=== PATIENT | male | born 1940 | race Caucasian/White ===

== ENCOUNTER → 2019-04-09 17:44 | Outpatient (CLI) | payer MEDICARE, OTHER, SELFPAY ==
--- NOTE | ~2019-04-09 | XR_ITS ---
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 TECHNIQUE: Posteroanterior, ulnar deviation, oblique, and lateral views of the right wrist were obtai carolyn. COMPARISON: none FINDINGS: Again seen is widening of the scapholunate interval with advanced osteoarthritis at the radial scapho id articulation consistent with scapholunate advanced collapse (SLAC) wrist. Moderate osteoarthritis at the lunocapitate articulation at the midcarpal joint. Mild osteoarthritis at the remainder of the wrist and metacarpal joints, the triscaphe joint and first carpal metacarpal joints. 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 No fracture. Atherosclerotic calcification s along the ulnar artery. IMPRESSION: 1. 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 2. Additional less severe polyarticular osteoarthritis at the wrist and carpus with progression of no w moderate osteoarthritis at the lunocapitate articulation. Reviewed, dictated and finalized at location A. C COMPOSITION TEACHER IMPRESSION: 1. Scapholunate advanced collapse (SLAC) wrist with chronic severe osteoarthrit is at the radial scaphoid articulation. 2. Additional less severe polyarticular osteoarthritis at the wrist and carpus with progression of now moderate osteoarthritis at the lunocapitate articnavio nandini
== END ==
PROVIDERS: PCP Family Medicine; Visit Provider Plastic Surgery
DX: M19.031 Primary osteoarthritis, right wrist (principal)
CPT/HCPCS: 73110

== ENCOUNTER 2020-01-28 10:59 | Outpatient (CLI) | payer MEDICARE, OTHER, SELFPAY ==
--- NOTE | 2020-01-28 11:23 | ECG_ITS ---
Measurements Intervals [place] Rate: 60 P: 238 NM: 213 QRS: -53 QRSD: 168 T: 90 QT: 495 QTc: 495 Interpretive Statements ELECTRONIC ATRIAL PACEMAKER ELECTRONIC VENTRICULAR PACEMAKER BASELINE ARTIFACT- V3 NO FURTHER INTERPRETATION IS POSSIBLE ATYPICAL ECG Electronically Signed On 01-28-2020 13:24:32 PRODUCTION CONTROL PEGBOARD CLERK by Yinka Lawler D.O.
== END 2020-01-28 11:00 | disposition home or self-care (01) ==
PROVIDERS: PCP Family Medicine; Visit Provider Nurse Practitioner Family
DX: I12.9 Hypertensive chronic kidney disease with stage 1 through stage 4 chronic kidney disease, or unspecified chronic kidney disease (principal); N18.30 Chronic kidney disease, stage 3 unspecified; R42 Dizziness and giddiness; R94.31 Abnormal electrocardiogram [ECG] [EKG]
CPT/HCPCS: 93005

== ENCOUNTER 2020-04-07 14:54 | Outpatient (CLI) | payer MEDICARE, SELFPAY ==
[2020-04-07 16:19] LABS: Basophils Percent Auto 0.3 % (0.2-1.2); Eosinophils Absolute Auto 0.2 K/mm3 (0-0.3); Eosinophils Percent Auto 3.3 % (0-4.4); Hematocrit 45.4 % (42.0-52.0); Hemoglobin 15.1 g/dL (14.0-18.0); Immature Granulocyte Absolute 0.01 K/mm3 (0.00-0.031); Immature Granulocyte Percent A 0.1 % (0-0.5); Lymphocytes Absolute Auto 1.65 K/mm3 (0.9-3.2); Lymphocytes Percent Auto 22.6 % (18.3-44.2); Mean Corpuscular HGB Conc 33.3 g/dl (32-36); Mean Corpuscular Hemoglobin 30.9 pg (26-34); Monocytes Absolute Auto 0.5 K/mm3 (0.1-0.6); Monocytes Percent Auto 6.9 % (2.6-8.5); Neutrophils Absolute Auto 4.9 K/mm3 (1.3-6.7); Neutrophils Percent Auto 66.8 % (45.5-73.1); Platelet Count Result 207 k/mm3 (150-375); Red Blood Count 4.88 M/mm3 (4.6-6.20); Red Cell Distribution Width 13.1 % (11.5-14.5); White Blood Count 7.3 K/mm3 (4.5-10.0)
== END 2020-04-07 14:55 | disposition home or self-care (01) ==
LOC: ANHLAB 14:58
PROVIDERS: PCP Family Medicine
DX: G20 Parkinson's disease (principal); G62.9 Polyneuropathy, unspecified
CPT/HCPCS: 36415; 82607; 85025; 86038

== ENCOUNTER 2020-04-09 09:50 | Outpatient (CLI) | payer MEDICARE, SELFPAY ==
[2020-04-09 10:32] LABS: Alanine Aminotransferase 6 U/L (4-50); Albumin Level 3.8 g/dL (3.5-5.1); Alkaline Phosphatase 65 U/L (38-126); Anion Gap 4 mmol/L (8-16); Aspartate Amino Transferase 23 U/L (17-59); Bilirubin,Total 0.4 mg/dL (0.2-1.3); Blood Urea Nitrogen 32 mg/dL (9-20); Calcium 9.1 mg/dL (8.4-10.2); Carbon Dioxide 31 mmol/L (22-30); Chloride 104 mmol/L (98-107); Estimated Glomerular Filt Rate 49; Glucose 139 mg/dL (75-110); Potassium 4.4 mmol/L (3.4-5.0); Sodium 139 mmol/L (137-145)
[2020-04-09 10:40] LABS: Erythrocyte Sedimentation Rate 11 mm/hr (0-20)
[2020-04-11 16:47] LABS: Methylmalonic Acid 182 nmol/L (87-318)
[2020-04-11 22:57] LABS: Albumin 24 Hr Urine 45 %; Creatinine, 24 Hr Urine 1.24 g/24 h (0.50-2.15); Total Protein/Creatinine Ratio 294 mg/g creat (<115)
[2020-04-16 09:54] LABS: Measured Kappa Chains 3.02; Measured Lambda Chains 0.75; Total Kappa Chains 42.28
[2020-04-16 09:55] LABS: Albumin 45; Creat 24 Hr 1.25; Pro/Creat Ratio 280
== END 2020-04-09 09:51 | disposition home or self-care (01) ==
PROVIDERS: PCP Family Medicine
DX: G20 Parkinson's disease (principal); G62.9 Polyneuropathy, unspecified
CPT/HCPCS: 36415; 80053; 81050; 82570; 83883; 83921; 84156; 84166; 85652; 86335

== ENCOUNTER 2020-07-18 13:51 | Outpatient (CLI) | payer MEDICARE, SELFPAY ==
--- NOTE | ~2020-07-18 | US_ITS ---
EXAMINATION: US art doppler w press LE BI DATE: 07/18/2020 14:42 INDICATION: Peripheral vascular disease. TECHNIQUE: Segmental pressures and plethysmographic and Doppler waveforms of the brachial and lower e xtremity arteries were obtained. COMPARISON: None. FINDINGS: Right and left brachial artery pressures of 163 mm Hg and 168 mm Hg, respectively, are concordant (no rmal difference <= 30 mmHg). The left high thigh pressure index is 0.76 (normal > 1.2). The right hig h thigh pressure index was unable to be obtained due to inability to occlude the vessel. The right ankle-brachial index (MAYDA) is 1.14 (normal >= 0.9-1). The right great toe-brachial index (T BI) is 0.42 (normal >= 0.6-0.8). The right lower extremity segmental pressure gradients are increased between the right posterior tibial artery and the right dorsalis pedis artery at the same level (nor mal gradients <= 20-30 mmHg between adjacent levels on the same leg or the same levels on the two leg s). Arterial waveforms are biphasic with brisk systolic upstrokes throughout the right lower limb. The left MAYDA is 0.61. The left TBI is 0.35. The left lower extremity segmental pressure gradients are increased between the left [id number] popliteal artery, dorsalis pedis artery and posterior tibi al artery relative to the corresponding arteries in the contralateral right lower limb. In addition t here is a significant pressure gradient between the left posterior tibial artery and both the left do rsalis pedis and [id number] popliteal arteries. Arterial waveforms are biphasic with brisk systol ic upstroke at the left common femoral artery and with parvus and tardus waveforms with broadened sys tolic peaks and delayed upstrokes the more distal arteries with nearly aphasic flow in the left poste rior tibial artery. IMPRESSION: 1. Arterial occlusive disease to the left lower limb with moderately decreased left high thigh pressu re index, MAYDA and TBI with delayed systolic upstrokes beginning in the left superficial femoral arter y suggesting a significant stenosis in the more proximal superficial femoral artery. 2. Mild arterial occlusive disease to the right lower limb with normal right MAYDA but mildly decreased right TBI Reviewed, dictated and finalized at location A. IMPRESSION: 1. Arterial occlusive disease to the left lower limb with moderately decreased left high thigh pressure index, MAYDA and TBI with delayed systolic upstrokes beg inning in the left superficial femoral artery suggesting a significant stenosis in the more proximal superficial femoral artery. 2. Mild arterial occlusive disease to the right lower limb with normal right AB I but mildly decreased right TBI
== END 2020-07-18 13:52 | disposition home or self-care (01) ==
PROVIDERS: PCP Family Medicine; Visit Provider Podiatrist Foot & Ankle Surgery
DX: I70.203 Unspecified atherosclerosis of native arteries of extremities, bilateral legs (principal)
CPT/HCPCS: 93923

== ENCOUNTER 2020-07-28 12:37 | Outpatient (CLI) | payer MEDICARE, SELFPAY ==
--- NOTE | ~2020-07-28 | CT_ITS ---
EXAMINATION: CTA abd aorta runoff DATE: 07/28/2020 13:30 INDICATION the anterior tibial peroneal arteries are unremarkable: Peripheral vascular disease TECHNIQUE: Computed tomographic angiography (CTA) of the abdomen, pelvis, and both lower extremities was performed with 150 mL Omnipaque-350 intravenous contrast. The dose-length product (DLP) was 661.5 2 mGy-cm. Maximum intensity projection 3D-reconstructions of the arteries were created by the technol hector on a separate workstation. Automated exposure control and iterative reconstruction technique we re employed. COMPARISON: None. FINDINGS: ABDOMINAL AORTA AND ITS BRANCHES: There is calcified atherosclerosis of the abdominal aorta without aneurysm or dissection. There is ca lcified atherosclerosis and severe stenosis at the origins of the superior mesenteric and inferior me senteric arteries. The celiac axis is unremarkable. Single renal arteries are present PELVIC VASCULATURE: There is calcified atherosclerosis and severe stenosis at the origin of the left common iliac artery. There is calcified atherosclerosis with out significant stenosis of the right common iliac artery, b ilateral external iliac arteries, and bilateral internal iliac arteries. RIGHT LOWER EXTREMITY VASCULATURE: There is mild stenosis of the femoral artery. There is moderate stenosis of the mid superficial femor al artery. There is moderate stenosis of the distal popliteal artery and tibioperoneal trunk. The ant erior tibial and posterior tibial arteries are unremarkable. The peroneal artery is diminutive in its distal aspect. There is a two-vessel runoff at the ankle. LEFT LOWER EXTREMITY VASCULATURE: There is severe stenosis of the distal femoral artery. There is mild to moderate stenosis of the dist al superficial femoral artery. Popliteal artery is unremarkable. There is mild stenosis at the origin of the tibioperoneal trunk. There is severe stenosis of the posterior tibial artery which is occlude d approximately 12 cm beyond its origin with short segments of distal reconstitution. The anterior ti bial and peroneal arteries are unremarkable. There is a two-vessel runoff at the ankle. ADDITIONAL FINDINGS: Minimal dependent atelectasis is present in the lung bases. The heart size is normal. The liver, sple en, pancreas, gallbladder, and adrenal glands are normal. Cysts of the left kidney measure up to 8 mm . The right kidney is unremarkable. No pathologically enlarged abdominal or pelvic lymph nodes are id entified. There is no free intraperitoneal gas or evidence of bowel obstruction. A moderate volume of colonic stool is present. There is severe lumbar spondylosis. IMPRESSION: 1. Vascular disease as detailed above, worst in the left pelvis and left lower extremity. Reviewed, dictated and finalized at location A.
[2020-07-28 13:16] LABS: Estimated Glomerular Filt Rate 39
== END 2020-07-28 12:38 | disposition home or self-care (01) ==
PROVIDERS: PCP Family Medicine; Visit Provider Podiatrist Foot & Ankle Surgery
DX: I70.0 Atherosclerosis of aorta (principal); I70.202 Unspecified atherosclerosis of native arteries of extremities, left leg; M47.816 Spondylosis without myelopathy or radiculopathy, lumbar region
CPT/HCPCS: 75635; Q9967

== ENCOUNTER 2020-08-11 15:35 | Outpatient (CLI) | payer MEDICARE, SELFPAY ==
--- NOTE | ~2020-08-11 | US_ITS ---
EXAMINATION: US venous doppler [facility] DATE: 08/11/2020 16:11 INDICATION: Left upper limb swelling. TECHNIQUE: Grayscale ultrasound images without and with compression and Doppler ultrasound images of the left upper extremity veins were obtained. COMPARISON: None. FINDINGS: The visualized portions of the left internal jugular vein, subclavian vein, axillary vein, basilic ve in, cephalic vein, radial vein are patent. There is thrombus in left brachial and ulnar veins. IMPRESSION: 1. Deep vein thrombosis involving left brachial and ulnar veins. I called this result to Dr. Arroyo . Reviewed, dictated and finalized at location A. IMPRESSION: 1. Deep vein thrombosis involving left brachial and ulnar veins. I called this result to Dr. Arroyo.
== END 2020-08-11 15:36 | disposition home or self-care (01) ==
PROVIDERS: PCP Family Medicine; Visit Provider Family Medicine
DX: I82.622 Acute embolism and thrombosis of deep veins of left upper extremity (principal)
CPT/HCPCS: 93971

== ENCOUNTER 2021-08-07 19:59 | Emergency (ER) | payer MEDICARE, SELFPAY ==
--- NOTE | ~2021-08-07 | CT_ITS ---
EXAMINATION: CTA brain carotid DATE: 08/07/2021 21:01 INDICATION: Vertigo TECHNIQUE: Computed tomographic angiography (CTA) of the head was performed without and with 100 mL O mnipaque-350 intravenous contrast. CTA of the neck was performed with intravenous contrast. The dose- length product was 1671.78 mGy-cm. Maximum intensity projection and volume rendered 3D-reconstruction s were created by the technologist on a separate workstation. Automated exposure control and iterativ e reconstruction technique were employed. COMPARISON: None. FINDINGS: HEAD CTA: There is no acute intraparenchymal hemorrhage. No evidence of mass lesion. No evidence of a cute infarction. There is mild periventricular and subcortical hypodensity probably related to small vessel ischemic disease. There is mild prominence of the sulci and ventricles related to cerebral atr ophy. Intracranial calcified cerebral atherosclerosis is noted. There are no extra-axial collections. There is no mass effect or midline shift. Changes in the globes are likely from ocular lens surgery. The visualized sinuses and mastoid air cells are well aerated. There is no significant stenosis of the basilar artery or posterior cerebral arteries. There is no si gnificant stenosis of the intracranial internal carotid arteries or the anterior or middle cerebral a rteries. The anterior communicating artery and posterior communicating arteries are normal. There is no aneurysm. The right vertebral artery is diminutive and hypoplastic near the origin of the basilar artery. NECK CTA: The thyroid gland is unremarkable. The submandibular and parotid glands are symmetric. Ther e is no lymphadenopathy. There are no masses identified. The airway is unremarkable. Severe cervical spondylosis is noted. The superior mediastinum is unremarkable. There is calcified atherosclerosis of the carotid arteries without hemodynamically significant stenosis. There is 0% stenosis of the proximal right internal carotid artery relative to normal distal artery l umen diameter (NASCET criteria). There is 0% stenosis of the proximal left internal carotid artery re lative to normal distal artery lumen diameter. IMPRESSION: 1. No acute intracranial abnormality. Normal head CTA. 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 2. 0% stenosis of the proximal right internal carotid artery relative to normal distal artery lumen d iameter (NASCET criteria). 3. 0% stenosis of the proximal left internal carotid artery relative to normal distal artery lumen di ameter. Reviewed, dictated and finalized at location F. IMPRESSION: 1. No acute intracranial abnormality. Normal head CTA. 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 2. 0% stenosis of the proximal right internal carotid artery relative to normal distal artery lumen diameter (NASCET criteria). 3. 0% stenosis of the proximal left internal carotid artery relative to normal distal artery lumen diameter.
--- NOTE | ~2021-08-07 | XR_ITS ---
EXAMINATION: XR chest 2V DATE: 08/07/2021 20:45 INDICATION: Dizziness and nausea TECHNIQUE: AP and lateral views of the chest are obtained. COMPARISON: 12/10/2017 FINDINGS: The lungs are free of acute opacities. There is no pleural effusion or pneumothorax. The ca rdiomediastinal silhouette is normal. There are bridging osteophytes at multiple levels in the spine, consistent with diffuse idiopathic skeletal hyperostosis (DISH). A dual-lead cardiac pacemaker of th e left chest wall ends with leads in expected locations. IMPRESSION: 1. No acute cardiopulmonary abnormality. Reviewed, dictated and finalized at location F.
[2021-08-07 20:03] VITALS: BP 155/65; PULSE 61; RESP 18; TEMP 36.6; O2SAT 100
--- NOTE | 2021-08-07 20:05 | ECG_ITS ---
Measurements Intervals [place] Rate: 59 P: 67 NH: 195 QRS: -58 QRSD: 186 T: 97 QT: 504 QTc: 503 Interpretive Statements ELECTRONIC ATRIAL PACEMAKER ELECTRONIC VENTRICULAR PACEMAKER ABNORMAL RHYTHM ECG COMPARED TO ECG 01/28/2020 11:37:29 NO SIGNIFICANT CHANGES Electronically Signed On 08-08-2021 9:23:31 CDT by Luz Tamayo M.D.
[2021-08-07 20:18] LABS: Basophils Percent Auto 0.4 % (0.2-1.2); Eosinophils Absolute Auto 0.2 K/mm3 (0-0.3); Eosinophils Percent Auto 3.3 % (0-4.4); Hematocrit 46.4 % (42.0-52.0); Hemoglobin 14.9 g/dL (14.0-18.0); Immature Granulocyte Absolute 0.01 K/mm3 (0.00-0.031); Immature Granulocyte Percent A 0.1 % (0-0.5); Lymphocytes Absolute Auto 1.58 K/mm3 (0.9-3.2); Lymphocytes Percent Auto 22.8 % (18.3-44.2); Mean Corpuscular HGB Conc 32.1 g/dl (32-36); Mean Corpuscular Hemoglobin 30.2 pg (26-34); Mean Corpuscular Volume 93.9 fl (80-100); Mean Platelet Volume 10.3 fl (7.4-10.4); Monocytes Absolute Auto 0.5 K/mm3 (0.1-0.6); Monocytes Percent Auto 7.7 % (2.6-8.5); Neutrophils Absolute Auto 4.5 K/mm3 (1.3-6.7); Neutrophils Percent Auto 65.7 % (45.5-73.1); Platelet Count Result 210 k/mm3 (150-375); Red Blood Count 4.94 M/mm3 (4.6-6.20); Red Cell Distribution Width 13.9 % (11.5-14.5); White Blood Count 6.9 K/mm3 (4.5-10.0)
[2021-08-07 20:26] LABS: Prothrombin Time 12.7 Seconds (11.1-14.7)
[2021-08-07 20:27] LABS: Partial Thromboplastin Time 24.7 SECONDS (22.3-36.8)
[2021-08-07 20:28] LABS: Alanine Aminotransferase 12 U/L (6-50); Albumin Level 4.1 g/dL (3.5-5.1); Alkaline Phosphatase 80 U/L (38-126); Anion Gap 7 mmol/L (8-16); Aspartate Amino Transferase 28 U/L (17-59); Bilirubin,Total 0.4 mg/dL (0.2-1.3); Blood Urea Nitrogen 28 mg/dL (9-20); Calcium 8.7 mg/dL (8.4-10.2); Carbon Dioxide 29 mmol/L (22-30); Chloride 104 mmol/L (98-107); Estimated CRCL calculation 33 ml/min; Estimated Glomerular Filt Rate 49; Glucose 135 mg/dL (65-110); Potassium 4.1 mmol/L (3.4-5.0); Sodium 140 mmol/L (137-145)
[2021-08-07 20:39] LABS: Troponin I 0.018 ng/mL (0.000-0.034)
[2021-08-07] MEDS: MECLIZINE HCL 25 MG TABLET PO (20:54)
[2021-08-07 21:26] LABS: Appearance Urine Clear (Clear); Bilirubin Urine Negative (Negative); Color Urine Yellow (Yellow); Glucose Urine UA Negative (Negative); Ketones Urine Negative (Negative); Leukocyte Esterase Ur Negative LEU/UL (Negative); Nitrate Urine Negative (Negative); Protein Urine Trace mg/dL (Negative); Specific Grav Ur 1.015 (1.001-1.035); pH Urine 5.5 (5.0-9.0)
[2021-08-07 21:28] LABS: Mucus Urine Rare /lpf; RBC Urine 0-2 /hpf (0-2); WBC Urine 0-3 /hpf
[2021-08-07 21:33] VITALS: BP 181/82; PULSE 60; RESP 16; O2SAT 98
[2021-08-07 21:33] LABS: Add Urine Microscopic? YES; Blood Urine Trace-Intact (Negative)
--- NOTE | 2021-08-07 21:37 | ED.DIZZY ---
HPI - Dizziness General Chief Complaint: Dizziness Stated Complaint: DIZZY, NAUSEA Time Seen by Provider: 08/07/21 20:04 Source: patient History of Present Illness HPI Narrative: Patient presents with dizziness. Describes sensation as a feeling of being off balance it is associated with some nausea. Patient reports history of the same if this episode seemed to last a little bit longer than his usual episodes. Symptoms overall have been improving however since they did not resolve his family encouraged him to go to the emergency room. Patient preferred to manage his symptoms at home. Denies any chest pain or shortness of breath. Denies any lightheadedness or a sensation of going to pass out denies any recent fevers, cough, congestion. Reports there was a medication change approximately 2 weeks ago but has been tolerating it so far. Related Data Home Medications Medication Instructions Recorded Confirmed gabapentin 300 mg capsule 900 mg PO TID 05/12/21 05/12/21 Allergies Allergy/AdvReac Type Severity Reaction Status Date / Time nabumetone Allergy Unknown unk Verified 05/12/21 10:36 Review of Systems Review of Systems: CONSTITUTIONAL: Denies fever, chills, or sweats. EYES: Denies visual changes, redness, or discharge. ENT: Denies rhinorrhea, congestion, sore throat, or otalgia. CARDIOVASCULAR: Denies chest pain, palpitations, or edema. RESPIRATORY: Denies cough or dyspnea. GASTROINTESTINAL: Denies abdominal pain,vomiting, or diarrhea. GENITOURINARY: Denies dysuria or hematuria. SKIN: Denies rash or itching. MUSCULOSKELETAL: Denies back pain, joint pain, or myalgia. NEUROLOGIC: Denies headache, numbness, or weakness. PSYCHIATRIC: Denies anxiety or depression. All systems reviewed & are unremarkable except as noted in HPI and below [facility] Past Medical History Medical History CKD (chronic kidney disease), stage III PAD (peripheral artery disease) Surgical History Surgical History S/P arterial stent LLE Family History Family History Mother Family history of heart disease in male family member before age 55 Family history of coronary artery disease Sibling Patient's brother is in good health Carcinoma of colon Father Malignant neoplasm of prostate Other Cerebrovascular accident Hypertension Social History Social History Smoking status: Former smoker Tobacco type: cigarettes Second hand tobacco smoke exposure: No Smoking end date: 03/07/74 Alcohol intake: never Substance use: never Substance use type: does not use Gender identity (if verbalized by the patient): Male Sexual Orientation (if Verbalized by the Patient): Straight or Heterosexual Exam Narrative: GENERAL: Well-appearing, well-nourished, and in no acute distress. HEAD: Normocephalic, atraumatic. EYES: PERRLA and EOMI. ENT: Nares clear, no rhinorrhea or epistaxis. Mucous membranes moist. NECK: Supple. No masses. No JVD CHEST: Clear to auscultation. No respiratory distress. No wheezes rales or rhonchi HEART: Regular rate and rhythm. No murmur heard. Normal peripheral pulses. ABDOMEN: Soft, nontender, nondistended, normal active bowel sounds. EXTREMITIES: Normal range of motion. No edema. SKIN: Warm, dry, no rash. NEURO: Cranial nerves II through XII are intact patient has 5 out of 5 strength in all extremities sensation intact light touch in all extremities patient has mild symmetric dysdiadochokinesia but no dysmetria with [id number] alert and oriented x3. PSYCH: Normal mood and affect. Course Reevaluation(s) Reevaluation #1: Patient reports complete resolution of his symptoms after the meclizine. His reports he ambulated in the emergency room and felt at his baseline and is requesting to go h
[2021-08-07 22:05] VITALS: BP 177/78; PULSE 60; RESP 16; O2SAT 98
== END 2021-08-07 22:13 | disposition home or self-care (01) ==
PROVIDERS: Emergency Provider Emergency Medicine; PCP Family Medicine
DX: R42 Dizziness and giddiness (principal); R11.0 Nausea; N18.30 Chronic kidney disease, stage 3 unspecified; I73.9 Peripheral vascular disease, unspecified; F41.8 Other specified anxiety disorders; G20 Parkinson's disease; Z87.891 Personal history of nicotine dependence; Z95.0 Presence of cardiac pacemaker
CPT/HCPCS: 36415; 70496; 70498; 71046; 80053; 81001; 84484; 85025; 85610; 85730; 93005; 99284; A9270; Q9967

== ENCOUNTER → 2021-09-14 14:05 | Outpatient (CLI) | payer MEDICARE, SELFPAY ==
--- NOTE | ~2021-09-14 | CT_ITS ---
EXAMINATION: CT thoracic spine wo con DATE: 09/14/2021 14:33 INDICATION: Thoracic back pain. TECHNIQUE: Computed tomography (CT) of the thoracic spine was performed without intravenous contrast. Automated exposure control and iterative reconstruction technique were employed. The dose-length pro duct was 570.26 mGy-cm. COMPARISON: Chest 2 views 08/07/2021 FINDINGS: There is 3 degrees levocurvature of thoracic spine. There is mild chronic anterior wedging of T5-T11 vertebral bodies. There is interbody fusion at C6-C7. There is decreased disc height at mos t levels, severe at T1-T2 and from T5-T6 through T7-T8. There is multilevel facet joint osteoarthriti s, severe on the right at C7-T1, T4-T5, and T11-T12. There is multilevel mild neural foraminal stenos is bilaterally. On the right, there is moderate neural foraminal stenosis at T11-T12. On the left, th ere is moderate neural foraminal stenosis at T1-T2. There is mild central canal stenosis at T9-T10. IMPRESSION: 1. Severe thoracic spondylosis. Reviewed, dictated and finalized at location A.
--- NOTE | ~2021-09-14 | CT_ITS ---
EXAMINATION: CT lumbar spine wo con DATE: 09/14/2021 14:33 INDICATION: Low back pain, unspecified. TECHNIQUE: Computed tomography (CT) of the lumbar spine was performed without intravenous contrast. A utomated exposure control and iterative reconstruction technique were employed. The dose-length produ ct was 402.02 mGy-cm. COMPARISON: None FINDINGS: There is 11 degrees dextroscoliosis of lumbar spine. There is 3 mm retrolisthesis of L1 on L2 and L2 on L3 and 4 mm anterolisthesis of L5 on S1. There is mild chronic anterior wedging of L1 ve rtebral body. There is severely decreased disc height from L1-L2 through L5-S1 with endplate remodeli ng. There is Baastrup disease at L2-L3 and L3-L4. There is a stent in left common iliac artery. The f ollowing disc levels are specifically discussed: L1-L2: The disc is bulging. There is mild bilateral facet joint osteoarthritis. There is moderate elroy ateral neural foraminal stenosis. There is mild central canal stenosis. L2-L3: The disc is bulging. There is moderate bilateral facet joint osteoarthritis. There is moderate bilateral neural foraminal stenosis. There is mild central canal stenosis. L3-L4: The disc is bulging. There is severe right and moderate left facet joint osteoarthritis. There is severe right and moderate left neural foraminal stenosis. There is mild central canal stenosis. L4-L5: The disc is bulging. There is severe right and moderate left facet joint osteoarthritis. There is moderate bilateral neural foraminal stenosis. There is mild central canal stenosis. L5-S1: The disc is bulging. There is severe bilateral facet joint osteoarthritis. There is moderate r ight and mild left neural foraminal stenosis. There is mild central canal stenosis. IMPRESSION: 1. Severe lumbar spondylosis. 2. Lumbar dextroscoliosis. Reviewed, dictated and finalized at location A.
== END ==
PROVIDERS: PCP Family Medicine; Visit Provider Nurse Practitioner Family
DX: M54.50 Low back pain, unspecified (principal); M54.6 Pain in thoracic spine; M47.814 Spondylosis without myelopathy or radiculopathy, thoracic region; M47.816 Spondylosis without myelopathy or radiculopathy, lumbar region; M41.86 Other forms of scoliosis, lumbar region
CPT/HCPCS: 72128; 72131

== ENCOUNTER 2021-09-23 10:55 | Emergency (ER) | payer MEDICARE, SELFPAY ==
--- NOTE | ~2021-09-23 | XR_ITS ---
XR hip LT min 2V DATE: 09/23/2021 11:30 INDICATION: Left hip pain. No injury. TECHNIQUE: 3 views COMPARISON: None FINDINGS: Moderate left hip osteoarthritis. No fracture or dislocation, avascular necrosis or bone de struction of the left hip is detected. Prominent abdominal aortic, iliac and femoral artery calcifications. IMPRESSION: Moderate left hip osteoarthritis Reviewed, dictated and finalized at location B.
--- NOTE | 2021-09-23 10:56 | ED.EXTPRO ---
HPI - Extremity Problem General Chief complaint: Extremity Problem,Nontraumatic Stated complaint: L HIP PAIN Time Seen by Provider: 09/23/21 10:55 Source: patient Mode of arrival: ambulatory Limitations: no limitations History of Present Illness HPI Narrative: Mr. Herrera is an 81-year-old male patient presenting to the clinic today with complaints of left hip pain 2-3 days. He reports no known injury. Has pain to the left lateral/posterior hip- rates pain currently 2/3-10. States the pain does not burn but is more of a sharp/stabbing/ache like pain. Has taken his gabapentin and some tylenol and this brought his pain down from a 9/10 to a 2/3. Pain is worse with ambulation/stepping up. Related Data Home Medications Medication Instructions Recorded Confirmed gabapentin 300 mg capsule 900 mg PO TID 05/12/21 05/12/21 Allergies Allergy/AdvReac Type Severity Reaction Status Date / Time nabumetone Allergy Unknown unk Verified 05/12/21 10:36 Review of Systems Review of Systems: Pertinent positives per HPI. Patient denies any fever, chills, rash, headache, visual changes, dizziness, cough, runny nose, sore throat, shortness of breath, chest pain, palpitations, nausea, vomiting, diarrhea, constipation, abdominal pain, or any urinary issues. [facility] Past Medical History Medical History CKD (chronic kidney disease), stage III PAD (peripheral artery disease) Surgical History Surgical History S/P arterial stent LLE Family History Family History Mother Family history of heart disease in male family member before age 55 Family history of coronary artery disease Sibling Patient's brother is in good health Carcinoma of colon Father Malignant neoplasm of prostate Other Cerebrovascular accident Hypertension Social History Social History Smoking status: Former smoker Tobacco type: cigarettes Second hand tobacco smoke exposure: No Smoking end date: 03/07/74 Alcohol intake: never Substance use: never Substance use type: does not use Gender identity (if verbalized by the patient): Male Sexual Orientation (if Verbalized by the Patient): Straight or Heterosexual Comments At the time of my signature, I reviewed and agree with the nursing past medical, surgical, social, and family history. There is no relevant family history pertinent to the patient complaint. Exam Narrative: General: Well-developed, well nourished, in no apparent distress Head: Normocephalic, atraumatic. Cardio: Regular rate and rhythm, s1 and s2 normal, no murmur appreciated. Resp: Clear to auscultation bilaterally, no rhonchi, rales, wheezing or rubs. Musculoskeletal: No deformity,tender to palpation over the lateral posterior left hip, grossly normal range of motion, pain to the lateral/posterior left hip with internal rotation, muscle strength strong and equal, peripheral pulse strong, no edema, no cyanosis, normal gait and station 1 Course Course Emergency Course: Portions of this record may have been created with voice recognition software. Level of Care: Express Care Visit Vital Signs Vital signs: Vital signs reviewed MDM - Extremity (Nontraumatic) MDM Narrative Medical decision making narrative: At the time of visit patient was resting comfortably on the exam table. Patient and his daughter are requesting an X-ray. X-ray is negative for any sign of malalignment or pathological fracture. I suspect the patient more likely has bursitis of the left hip. Will send in a Rx for some prednisone. Supportive measures where discussed with the patient and daughter and he voiced understanding of discharge instructions. Differential Diagnosis Differential diagnosis: Likely other (lef
[2021-09-23 11:03] VITALS: BP 124/63; PULSE 68; RESP 16; TEMP 36.9; O2SAT 98
== END 2021-09-23 11:55 | disposition home or self-care (01) ==
PROVIDERS: Emergency Provider Nurse Practitioner Family; PCP Family Medicine
DX: M16.12 Unilateral primary osteoarthritis, left hip (principal); Z87.891 Personal history of nicotine dependence; N18.30 Chronic kidney disease, stage 3 unspecified; I73.9 Peripheral vascular disease, unspecified; Z95.820 Peripheral vascular angioplasty status with implants and grafts
CPT/HCPCS: 73502; 99213; G0463

== ENCOUNTER 2022-07-08 14:15 | Outpatient (CLI) | payer MEDICARE, SELFPAY ==
--- NOTE | ~2022-07-08 | US_ITS ---
EXAMINATION: US venous doppler LE RT DATE: 07/08/2022 16:11 INDICATION: Right lower limb pain and venous insufficiency TECHNIQUE: Grayscale ultrasound images without and with compression and Doppler ultrasound images of the right lower extremity veins were obtained. COMPARISON: 05/12/2017 FINDINGS: The visualized portions of right common femoral vein, profunda (deep) femoral vein, femoral vein, pop liteal vein, peroneal trunk, posterior tibial veins, peroneal veins, gastrocnemius vein and greater s aphenous vein outflow are patent. IMPRESSION: 1. No deep venous thrombosis in the right lower limb. Reviewed, dictated and finalized at location L.
--- NOTE | ~2022-07-08 | US_ITS ---
EXAMINATION: US art doppler w press LE BI DATE: 07/08/2022 16:09 INDICATION: Left lower limb pain and claudication TECHNIQUE: Segmental pressures and plethysmographic and Doppler waveforms of the brachial and lower e xtremity arteries were obtained. COMPARISON: None. FINDINGS: Right and left brachial artery pressures of 176 mm Hg and 176 mm Hg, respectively, are concordant (no rmal difference <= 30 mmHg). The right ankle-brachial index (MAYDA) is 1.06 (normal >= 0.9-1). The right great toe-brachial index (T BI) is 0.28 (normal >= 0.6-0.8). Arterial waveforms are biphasic with brisk systolic upstrokes throug hout the arteries of the right lower limb. The left MAYDA is 1.10. The left TBI is 0.35. Arterial waveforms are biphasic with mildly delayed upstr okes at the left dorsalis pedis artery and brisk systolic upstrokes at the remaining arteries of the left lower limb. IMPRESSION: 1. Arterial occlusive disease to the bilateral lower limbs with normal bilateral ABIs but moderately decreased bilateral TBIs and with mildly delayed systolic upstroke at the left dorsalis pedis artery. Reviewed, dictated and finalized at location B. IMPRESSION: 1. Arterial occlusive disease to the bilateral lower limbs with normal bilatera l ABIs but moderately decreased bilateral TBIs and with mildly delayed systolic upstroke at the left dorsalis pedis artery.
== END 2022-07-08 14:16 | disposition home or self-care (01) ==
PROVIDERS: PCP Family Medicine
DX: I77.1 Stricture of artery (principal); M79.604 Pain in right leg; R53.1 Weakness; R20.8 Other disturbances of skin sensation; I87.2 Venous insufficiency (chronic) (peripheral)
CPT/HCPCS: 93923; 93971

== ENCOUNTER → 2022-07-21 13:38 | Outpatient (CLI) | payer MEDICARE, SELFPAY ==
--- NOTE | ~2022-07-21 | XR_ITS ---
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 Pelvic rings are intact. No acute f racture or traumatic malalignment. There is atherosclerosis. There is lower lumbar spondylosis. Impression: 1: No acute bone or joint abnormality. 2: Moderate osteoarthritis of the hips. Reviewed, dictated and finalized at location B. Impression: 1: No acute bone or joint abnormality. 2: Moderate osteoarthritis of the hips.
== END ==
PROVIDERS: PCP Family Medicine; Visit Provider Family Medicine
DX: M16.0 Bilateral primary osteoarthritis of hip (principal)
CPT/HCPCS: 73502

== ENCOUNTER 2024-03-26 11:54 | Outpatient (CLI) | payer MEDICARE, SELFPAY ==
--- NOTE | ~2024-03-26 | XR_ITS ---
Clinical Indication: Cough PA and lateral views of the chest: Comparison: 08/07/2021 Findings: There is haziness at the left lung base. Right lung clear. Cardiomediastinal silhouette is stable, with pacemaker device. Bones and soft tissues are unremarkable. Impression: Hazy left basilar airspace disease. Correlate for atelectasis or pneumonia. Reviewed, dictated and finalized at location . [facility] Impression: Hazy left basilar airspace disease. Correlate for atelectasis or pneumonia.
== END 2024-03-26 11:55 | disposition home or self-care (01) ==
LOC: ANHIMG 11:56
PROVIDERS: PCP Family Medicine; Visit Provider Student in an Organized Health Care Education/Training Program
DX: J84.89 Other specified interstitial pulmonary diseases (principal)
CPT/HCPCS: 71046

== ENCOUNTER 2024-04-17 13:34 | Emergency (ER) | payer MEDICARE, SELFPAY ==
[2024-04-17] VITALS (16 sets, daily range): BP systolic 155–210; BP diastolic 68–104; PULSE 62–73; RESP 15–26; TEMP 36.3; O2SAT 96–100
--- NOTE | ~2024-04-17 | CT_ITS ---
EXAMINATION: CTA brain carotid DATE: 04/17/2024 17:26 INDICATION: Left hemiparesis. TECHNIQUE: Computed tomographic angiography (CTA) of the head was performed without and with 100 mL O mnipaque-350 intravenous contrast. CTA of the neck was performed with intravenous contrast. Automated exposure control and iterative reconstruction technique were employed. The dose-length product was 1 686.63 mGy-cm. Maximum intensity projection and volume rendered 3D-reconstructions were created by becki puentes technologist on a separate workstation. COMPARISON: CTA 08/07/2021 FINDINGS: HEAD CTA: There are scattered areas of low attenuation in the cerebral white matter. There is no intr acranial hemorrhage, acute infarction, or abnormal intracranial mass lesion. The ventricles are katherin l in size. There is mucosal thickening in the paranasal sinuses. There are likely changes of ocular l ens replacement surgeries. The mastoid air cells are normal. Left vertebral artery is dominant. There is no significant stenosis of basilar artery or the posterior cerebral arteries. There is no signifi cant stenosis of the intracranial internal carotid arteries or anterior cerebral arteries. There is a calcified embolus in a right M2 middle cerebral artery branch with severe stenosis. Anterior communi cating artery is normal. The posterior communicating arteries are normal. There is no aneurysm. NECK CTA: There is mild scarring at the lung apices. There is a 4 mm nodule in right thyroid lobe, li alejandro not clinically significant. There are no pathologically enlarged lymph nodes. There is no signif icant stenosis of the vertebral arteries. There is 0% stenosis of the proximal right internal carotid artery relative to normal distal artery lumen diameter (NASCET criteria). There is 0% stenosis of th e proximal left internal carotid artery relative to normal distal artery lumen diameter. There is sev ere cervical spondylosis. IMPRESSION: 1. Stable moderate nonspecific cerebral white matter disease, which likely represents chronic small v essel ischemic disease. 2. Calcified embolus in a right M2 middle cerebral artery branch with severe stenosis. 3. 0% stenosis of the proximal internal carotid arteries relative to normal distal artery lumen diame ters (NASCET criteria). Reviewed, dictated and finalized at location A. R SYSTEM SUPERVISOR IMPRESSION: 1. Stable moderate nonspecific cerebral white matter disease, which likely repr esents chronic small vessel ischemic disease. 2. Calcified embolus in a right M2 middle cerebral artery branch with severe st enosis. 3. 0% stenosis of the proximal internal carotid arteries relative to normal dis krystal artery lumen diameters (NASCET criteria).
--- NOTE | ~2024-04-17 | XR_ITS ---
CHEST RADIOGRAPH CLINICAL HISTORY: L sided weakness . COMPARISON: 03/26/2024 TECHNIQUE: Single portable view of the chest. FINDINGS The left mid lung is partially obscured due to pacemaker generator. Wires project over the right atrium and right ventricle. The remainder of the cardiomediastinal silhouette is otherwise unremarkable. Elevation of the left hemidiaphragm with adjacent compressive atelectasis, unchanged from prior. The lungs are otherwise clear. IMPRESSION: No focal infiltrate or effusion. Reviewed, dictated and finalized at location A. GING MEMBER
--- OUTSIDE RECORDS SUMMARY | 2024-04-17 14:25 | XMS_ITS | Clinical Summary ---
Author Organization [facility] [place] [address] Address [address] [place] [address] Care Team Providers Care Service Member Name Role Phone Az Arroyo MD Primary Care Provider Allergies Active Allergy Reactions Criticality Noted Date Comments Tita Burgos High 12/11/2007 Medications atorvastatin (LIPITOR) 20 mg tablet Take 1 tablet (20 mg total) by mouth daily Active folic acid (FOLVITE) 1 mg tablet Take 1 tablet (1 mg total) by mouth daily Active aspirin-calcium carbonate 81 mg-300 mg calcium(777 mg) tablet Take 81 mg by mouth daily Active HYDROcodone-stacy taminophen (NORCO) 5-325 mg per tablet every 6 hours Ac tive clonazePAM (KlonoPIN) 1 mg tablet Take 1 tablet (1 mg total) by mouth nightly for 14 days 14 tablet 2 Active Additional Information Patient not taking.Reported on 07/23/2021 gabapentin (NEURONTIN) 300 mg capsule Take 3 capsules (900 mg total) by mouth 3 (three) times a day morning, lunch, and qhs 810 capsule 3 2 Active morphine-naltre xone 80-3.2 mg capsule,oral only,ext.rel pellIndications :severe chronic pain requiring long-term opioid treatment Take by mouth Active meclizine (ANTIVERT) 25 mg tablet Take 25 mg by mouth 3 (three) times a day as needed for dizziness Active carbidopa-levod opa (SINEMET) 25-100 mg per tablet Take 2 tablets by mouth 3 (three) times a day with meals 540 tablet 2 2 Active buPROPion XL (WELLBUTRIN XL) 150 mg 24 hr tablet TAKE 1 TABLET (150 MG TOTAL) BY MOUTH DAILY 90 tablet 3 2 Active primidone (MYSOLINE) 50 mg tablet TAKE 1 TABLET EVERY MORNING 90 tablet 3 2 Active Additional Information Patient taking differently: 50 mg oral 2 times daily, Reported on 08/12/2022 clonazePAM (KlonoPIN) 1 mg tablet TAKE 1 TABLET EVERY NIGHT 30 tablet 2 3 Active clopidogreL (PLAVIX) 75 mg tablet Take 1 tablet (75 mg total) by mouth daily 3 Active Active Problems Problem Noted Date Diagnosed Date Vertigo 04/04/2020 PD (Parkinson's disease) 07/12/2018 Assessment & Plan (08/24/2021 1:09 PM CDT): ASSESSMENT - 80 y.o. man with Parkinson's disease for an estimated 6 years that likely began around 2016 at age 75 with progressive gait difficulties. He also has essential tremor, REM-behavior disorder, peripheral neuropathy, and depression. - PD: his motor symptoms have progressed subjectively, with more bradykinesia. The exam is similar to last time. His motor UPDRS score today was 30 in August 2021, 26 in July 2018. I will make a small increase in carbidopa/levodopa. - ET: likely the diagnosis for the posture/action tremor in the lft hand. Will continue primidone. - RBD: remains well controlled with bedtime clonazepam. - Depression: remains well controlled with bupropion - Paresthesias: now better controlled by gabapentin. - Falls: no falls PLAN (phrased as addressed to the patient): - Increase carbidopa/levodopa 25/100 to 2 tabs 3x/day - Continue clonazepam, gabapentin, as you are taking them. My total encounter time on 08/24/2021 was 32 minutes which was spent in the activities documented in the note. This includes time spent prior to the visit and after the visit in direct care of the patient. This time does not include time spent in any separately reportable services. Assessment & Plan (11/24/2020 1:25 PM CDT): ASSESSMENT - 80 y.o. man with Parkinson's disease for an estimated 5 years that likely began around 2016 at age 75 with progressive gait difficulties. He also has essential tremor, REM-behavior disorder, peripheral neuropathy, and depression. - PD: Continue carbidopa/levodopa at the current dose for now, but plan to taper to off soon as the ups and downs of doses never showsed a benefit or a loss of benefit. - ET: continues to possibly be present. Will continue primidone for now. - RBD: remains well controlled with bedtime clonazepam. - Depression: remains well controlled with bupropion - Paresthesias: only partially controlled by gabapentin. Try moving the third dose from bedtime to evening. - Falls: no falls PLAN (phrased as addressed to the patient): - Continue carbidopa/levodopa 25/100 - Move gabapentin third dose from bedtime to dinner time - Continue all other meds This was a telemedicine visit with Car Herrera and his which took place via TelephoneNo Internet/Computer. During the visit, I was located in the office and the patient was located at home in the [facility]. The patient visit started at 1555 and ended at 1702. Greater than 50 % of the video/phone call was spent on counseling and coordinating care. Patient was counseled on. The patient: has been informed that the visit may not be secure and acknowledged the information. The option of participating in a telephone or video visit during the COVID-19 public health emergency was explained to them. After being given an opportunity to ask questions about and discuss this type of visit, they verbally consented to proceeding with the telephone/video visit and understand that this service replaces an office visit. Assessment & Plan (04/04/2020 4:31 PM LINING LAYER): - 79 y.o. man with probable Parkinson's disease for an estimated 4 years that likely began around 2016 at age 75 with progressive gait difficulties. He also has essential tremor, REM-behavior disorder, peripheral neuropathy, and depression. - PD: the tremor subjectively responded to carbidopa/levodopa, and his gait seems to have also possibly improved initially but it has become worse recently and he just finished PT and is doing home exercises. I recommended APDA youtube channel exercises and we will increase levodopa by 1/2 tab per dose to see if this is helpful. - ET: dx unclear because his action tremor subjectively responded to the addition of levodopa and so may be part of PD. Will continue primidone for now but low threshhold to stop this if tremor worsens. - RBD: well controlled with bedtime clonazepam. - Depression: well controlled with bupropion. - Paresthesias/Neuropathy: partially controlled by gabapentin. Higher doses seemed to cause drowsiness. Will keep at the same dose however, he has not had a workup for neuropathy and has decreased sensation to sharp, to temp and decreased reflexes in BLL and ankles. We will start a blood workup today and may follow with EMG/NCS. He has had venous workup in the past that was normal. - Falls: He has had a few falls outside on uneven ground. - Vertigo: This is somewhat better with Jamaal but not fully and I suggested looking up vestibular exercises online. PLAN: 1. Increase carbidopa/levodopa 25/100 to 1.5 tab 3x/day for Parkinson's disease. 2. Same gabapentin for neuropathy but we will start lab workup: CBC, CMP, TSH, B12, MMA, TAL, ESR, serum and urine electrophoresis and immunofixation, labs given. Consider EMG/NCS based on these results vs referral to neuromuscle group. 3. Same gabapentin, same clonazepam, same bupropion. 4. Start APDA youtube exercises, continue home PT exercises. 5. May consider online vestibular exercises since Jamaal has only been partially helpful. Assessment & Plan (11/23/2019 12:05 PM CDT): Images from the original note were not included. - 79 y.o. man with probable Parkinson's disease for an estimated 4 years that likely began around 2016 at age 75 with progressive gait difficulties. He also has essential tremor, REM-behavior disorder, peripheral neuropathy, and depression. - PD: the tremor subjectively responded to carbidopa/levodopa, and his gait seems to have also possibly improved. Will keep levodopa at the current dose. - ET: dx unclear because his action tremor subjectively responded to the addition of levodopa and so may be part of PD. Will continue primidone for now. - RBD: well controlled with bedtime clonazepam. - Depression: well controlled with bupropion - Paresthesias: partially controlled by gabapentin. Higher doses seemed to cause drowsiness. Will keep at the same dose. - Falls: no falls PLAN (phrased as addressed to the patient): - Continue carbidopa/levodopa 25/100, 1 tab 3x/day for Parkinson's disease - Continue clonazepam 1 mg tabs, 1 tab at bedtime for RBD - Continue gabapentin 300 mg caps, 1-1-2 caps for neuropathic pain - Continue bupropion XL 150 daily for depression - Continue primidone 50 mg tabs, 1 tab in the morning for essential tremor - Contact my office if you fall This was a telemedicine visit with Car Herrera and his Alona which took place via Telephone. During the visit, I was located at home and the patient was located at home in the [facility]. The patient visit started at 1038 and ended at 1109. Greater than 50% of the video/phone call was spent on counseling and coordinating care. Patient was counseled on rationale for keeping doses unchanged. The patient: has been informed that the visit may not be secure and acknowledged the information. The option of participating in a telephone or video visit during the [facility]-19 public health emergency was explained to them. After being given an opportunity to ask questions about and discuss this type of visit, they verbally consented to proceeding with the telephone/video visit and understand that this service replaces an office visit. Tashi Olguin MD Assessment & Plan (07/13/2018 10:53 AM CDT): - 77 y.o. man with a history of motor symptoms of unknown onset, which i estimate at around 2-3 years ago based on the examination findings (2016). These consist of progressive slowing of gait, stooping of posture, and then slowing of movements in general. In addition, and likely separately from these symptoms, he has had paresthesias in his legs and feet for about 2 years; posture and action tremor in both hands that responded to primidone; and thrashing movements in his sleep that improved with bedtime clonazepam. - The examination revealed moderate parkinsonism dominated by relatively symmetric hypomimia, overall bradykinesia, hypokinesia of [place] in hands and feet, stooped posture, and slow gait. The motor UPDRS score was 26. He also had hyporeflexia and reduced sensation of temperature and vibration in both feet. - I reviewed outside records from his PMD, Dr. Arryoo (20 pages) - Falls: he had one fall in the past year. The medication started today (carbidopa/levodopa) and PT may help this problem. - I think the following neurologic problems are active: 1) Parkinson's disease is the most likely cause of his parkinsonism. I explained my impression and recommended starting treatment with levodopa with goal to improve general mobility and possibly balance. 2) peripheral neuropathy. Will look for any w/u already done by previous neurologist. Will increase gabapentin because he is 3) REM behavior disorder: this seems well controlled with bedtime clonazepam. 4) essential tremor: seems to have responded well to very low dose primidone. 5) His is concerned for possible depression. This impression may be confounded by hypomimia and bradykinesia. Will wait to hear what improves and what doesn't with carbidopa/levodopa and then reassess whether depression is there and whether it needs treatment. NEUROPSYCHOLOGICAL EVALUATION: INTERPRETATION Mixed performance on cognitive tests (normal MMSE, mildly impaired MoCA): may reflect aging or cognitive effects of parkinsonism. Minimal evidence of depression on GDS or HADS. No appreciable evidence of anxiety on HADS. No appreciable evidence of significant daytime drowsiness on [place] scale. No appreciable evidence of RBD on Stiasny-Kolster scale. These scores establish a baseline for potential future reference and do not require a change in current plan. PLAN (phrased as addressed to the patient): - I think you have the following neurologic problems: 1) Parkinsonism (probably Parkinson's disease) - Start carbidopa/levodopa 25/100: week 1, 1/2 tab 2x/day (morning and dinner time); week 2, 1/2 tab 3x/day; week 3, 1-0.5-0.5 tabs; week 4. 1-1-0.5 tabs; week 5 & after, 1 tab 3x/day - Look out for the following possible side effects, and call my office if any of these side effects appear: nausea, dizziness when standing, drowsiness, vivid dreams, nightmares, confusion, hallucinations (seeing things), paranoia, fainting (which can cause falls and head injury). - Start physical therapy for gait and balance 2) Essential tremor: continue primidone 50 mg tabs, 1 tab every day but move it to the morning 3) Peripheral neuropathy (tingling and numbness and pain in your feet): increase gabapentin 300 mg capsules to 1 cap 3x/day 4) REM Behavior Disorder (RBD) (punching and thrashing in your sleep): continue clonazepam but I am changing your prescription to 1 mg tablets, take 1 tablet at bedtime - Our office staff will contact your neurologist's office to (Dr. Bush in [facility]) to get results of tests for neuropathy (blood tests, EMG) - Call my office in 6 weeks to report on speed of movements and balance. Possible depression RESEARCH PARTICIPATION NOTES - Syndrome: parkinsonism - Body part affected at onset: BLE - Body part affected now: gen - Etiology: parkinson's disease - Confidence: possible - Age at onset: 74 - Familial: unknown - MARS Registry (Clinical Outcomes Study): yes: signed - Brain Donation Program: not asked - Genetics of PD: not asked - PIB/PAND: yes - Depression in PD: unknown - Tic Study: no Complete heart block (CMS/HCC) 01/10/2018 Cardiac pacemaker in situ 12/19/2017 Overview (12/19/2017): [employer] Dual Pacemaker. Dx; 3rd Degree AV Block. DOI 12/09/2017. [place] remote monitoring Q3 mo, office pacer checks Q1 yr. Atherosclerosis of [place] of both lower extremities with intermittent claudication 06/13/2017 Hypercoagulable state 07/26/2016 Neuropathy 03/07/2016 REM sleep behavior disorder 03/07/2016 Essential tremor 03/07/2016 Pre-diabetes 08/16/2011 HTN (hypertension) 07/26/2011 Depression 12/11/2007 Hyperlipidemia 12/11/2007 Encounters Date Type Department Care Team Description 03/21/2024 Orders Only [facility] Medical [facility] Cardiology [address] [place] [id number] Pop Musa MD Cardiac pacemaker in situ (Primary Dx); Complete heart block (CMS/HCC) (HCC) 03/20/2024 9:30 AM LINING LAYER Ancillary Procedure [facility] Cardiology [address] [place] [id number] Cardiac pacemaker in situ [Z95.0] (Primary Dx); CHB (complete heart block) (CMS/HCC) (HCC) from Last 3 Months Immunizations Name Administration Dates Next Due Influenza, Quadrivalent, Spl it, Preservative Free, Intramuscular 12/11/2017 Influenza, Trivalent, IM (MDV) 4,12/15/2012,11/25/2009,11/25,01/14/2006,12/31/2004,12/21/2002 ,12/28/2001,01/23/2001,01/18/2000 Pneumococcal Polysaccharide PPV23 04/05/2007,09/2006 Surgical History Surgery Date Site/Laterality Comments BACK SURGERY 03/07/1989 - 03/06/1990 BACK SURGERY 03/07/2009 - 03/06/2010 CARDIAC PACEMAKER PLACEMENT 03/07/2017 - 03/06/2018 HERNIA REPAIR 03/07/2013 - 03/06/2014 Medical History Medical History Date Comments Neuropathy (CMS/HCC) 2017 Arthritis 2016 Hx of blood clots 2016 Family History Medical History Relation Name Comments No Known Problems Brother Prostate cancer Father Tremor Father Heart failure Mother Tremor Mother Colon cancer Sister Relation Name Status Comments Brother Alive Father Mother Sister Alive Social History Tobacco Use Types Packs/Day Years Used Date Smoking Tobacco: Never Smokeless Tobacco: Never Tobacco Cessation:Counseling Given: Not Answered Alcohol Use Standard Drinks/Week Comments No 0 (1 standard drink = 0.6 oz pur e alcohol) Personal Safety Answer Date Recorded Getting School Help Needed Not on file 02/17 Sex and Gender Information Value Date Recorded Sex Assigned at Not on file Legal Sex Male 2:52 AM LINING LAYER Gender Identity Male 12/12/2017 10:40 AM CDT Sexual Orientation Not on file Occupation Industry Job Start Date Job End Date [employer] for [employer] Not on file Not on fi le Not on file Obstetrics History Last Filed Vital Signs Vital Sign Reading Time Taken Comments Blood Pressure 128/70 08/12/2022 3:34 PM CDT Pulse 64 08/12/2022 3:34 PM CDT Temperature 36.4 C (97.6 F) 08/24/2021 11:02 AM CDT Respiratory Rate - - Oxygen Saturation 97% 08/12/2022 3:34 PM CDT Inhaled Oxygen Concentration - - Weight 63 kg (139 lb) 08/12/2022 3:34 PM CDT Height 170.2 cm (5' 7 ) 08/12/2022 3:34 PM CDT Body Mass Index 21.77 08/12/2022 3:34 PM CDT Plan of Treatment Health Maintenance Due Date Last Done Comments Fall Risk Assessment 1940 DTaP/Tdap/Td Vaccine (1 - Tdap) 08/28/1950 Hepatitis B Screening 08/28/1957 Well Visit 65+ 08/28/2004 Pneumococcal vaccine 65+ (2 of 2 - PCV) 04/05/2008 04/05/2007, 05/11/2006 Depression Screening 07/13/2019 07/12/2018 Zoster Vaccine (2 of 2) 03/19/2024 01/23/2024 Influenza Vaccine Completed 01/06/2024, , 12/11/2017, Additional history exists Insurance Adjacent Applications MEDICARE PPO Adjacent Applications MEDICARE PPO [employer] CHOICE MEDICARE PPO Care Teams Service Member Relationship Specialty Start Date End Date Az Arroyo MD [address] [facility] [address] [place] [address] PCP - General Family Medicine 12/02/17
--- OUTSIDE RECORDS SUMMARY | 2024-04-17 14:25 | XMS_ITS | Data Portability ---
Author Organization [facility] [employer] [facility] Address [address] [address] Care Team Providers Care Painter Spring Name Role Phone FRANCIE GRIGSBY Primary Care Provider Assessment No assessment recorded. Plan of Treatment Reminders Order Date Submit Date Provider Last Modified By Organization Details Last Modified Time Details Appointments None recorded. Lab vitamin D, 25-hydrox y, total, serum - Non-fasti ng 020 SHAWN Not available 0 11:16:36 CBC w/ auto diff - Non-fasti ng 020 SHAWN Not available 0 11:16:35 Referral None recorded. Procedures None recorded. Surgeries None recorded. Imaging None recorded. Medication Orders None recorded. Patient TargetsNo targets recorded. Patient InstructionsNo instructions recorded. Reason for Referral None Reported. Results Created Date Observation Date Name Description Value Unit Range Abnormal Flag Note LastModifiedBy Organization Detail LastModifiedTime 08/17/19 20 08/18/2019 CBC w/ auto diff white blood cell count 7.3 thous and/u L 3.8-10 .8 normal Not Available [employer] [facility] [address] [place], [address], 08/18/2019 11:16:35 08/17/19 20 08/18/2019 CBC w/ auto diff red blood cell count 4.61 yonas on/uL 4.20-5 .80 normal Not Available [facility] [facility] [address] [place], [address], 08/18/2019 11:16:35 08/17/19 20 08/18/2019 CBC w/ auto diff hemoglobin 13.7 g/dL 13.2-1 7.1 normal Not Available [address], [address], 08/18/2019 11:16:35 08/17/19 20 08/18/2019 CBC w/ auto diff hematocrit 43.7 % 38.5-5 0.0 normal Not Available [address], [address], 08/18/2019 11:16:35 08/17/19 20 08/18/2019 CBC w/ auto diff MCV 94.8 fL 80.0-1 00.0 normal Not Available [address], [address], 08/18/2019 11:16:35 08/17/19 20 08/18/2019 CBC w/ auto diff MCH 29.7 pg 27.0-3 3.0 normal Not Available [address], [address], 08/18/2019 11:16:35 08/17/19 20 08/18/2019 CBC w/ auto diff MCHC 31.4 g/dL 32.0-3 6.0 low Not Available [address], [address], 08/18/2019 11:16:35 08/17/19 20 08/18/2019 CBC w/ auto diff RDW 13.5 % 11.0-1 5.0 normal Not Available [address], [address], 08/18/2019 11:16:35 08/17/19 20 08/18/2019 CBC w/ auto diff platelet count 210 thous and/u L 140-40 0 normal Not Available [address], [address], 08/18/2019 11:16:35 08/17/19 20 08/18/2019 CBC w/ auto diff MPV 10.6 fL 7.5-12 .5 normal Not Available [address], [address], 08/18/2019 11:16:35 08/17/19 20 08/18/2019 CBC w/ auto diff absolute neutrophils 4146 cells /uL 1500-7 800 normal Not Available [address], [address], 08/18/2019 11:16:35 08/17/19 20 08/18/2019 CBC w/ auto diff absolute lymphocytes 2175 cells /uL 850-39 00 normal Not Available [address], [address], 08/18/2019 11:16:35 08/17/19 20 08/18/2019 CBC w/ auto diff absolute monocytes 577 cells /uL 200-95 0 normal Not Available [address], [address], 08/18/2019 11:16:35 08/17/19 20 08/18/2019 CBC w/ auto diff absolute eosinophils 350 cells /uL 15-500 normal Not Available [address], [address], 08/18/2019 11:16:35 08/17/19 20 08/18/2019 CBC w/ auto diff absolute basophils 51 cells /uL 0-200 normal Not Available [address], [address], 08/18/2019 11:16:35 08/17/19 20 08/18/2019 CBC w/ auto diff neutrophils 56.8 % normal Not Available [address], [address], 08/18/2019 11:16:35 08/17/19 20 08/18/2019 CBC w/ auto diff lymphocytes 29.8 % normal Not Available [address], [address], 08/18/2019 11:16:35 08/17/19 20 08/18/2019 CBC w/ auto diff monocytes 7.9 % normal Not Available [address] [address] [place], [address], 08/18/2019 11:16:35 08/17/19 20 08/18/2019 CBC w/ auto diff eosinophils 4.8 % normal Not Available [address] [address] [place], [address], 08/18/2019 11:16:35 08/17/19 20 08/18/2019 CBC w/ auto diff basophils 0.7 % normal Not Available [address] [address] [place], [address], 08/18/2019 11:16:35 08/17/19 20 08/18/2019 vitam in D, 25-hy droxy , total , serum vitamin D,25-oh,tota l,ia 23 NG/mL 30-100 low Vitam in D Statu s 25-OH Vitam in D: Defic iency : <20 ng/mL Insuf ficie ncy: 20 - 29 ng/mL Optim al: > or = 30 ng/mL For 25-OH Vitam in D testi ng on patie nts on D2-morfin pplem entat ion and patie nts for whom quant itati on of D2 and D3 fract ions is requi red, the [employer] Assur eD(TM ) 25-OH VIT D, (D2,D 3), LC/MS /MS is recom shalini d: order code 39387 (neftali ents >2yrs ). See Note 1 Note 1 For addit ional infor santosh stockton e refer to http: //zeeshan [employer] stDia gnost ics.c om/fa q/FAQ 199 (This link is being provi ded for infor rosa webb/ educrena singh purpo ses only. ) Not Available [address] [address] [place], [address], 08/18/2019 11:16:35 08/17/19 20 06/22/2017 MRI, knee, w/o contr ast No observ ation record ed. BARCODE Not Available 2019 12:24:44 08/17/19 20 05/26/2017 XR, knee No observ ation record ed. BARCODE Not Available 2019 12:24:44 Result Notes None recorded. Problems No Known Problems Procedures Surgical History Date Name Laterality Status Provider Name and Address Organization Details Recorded Time Pacemaker completed [facility] 08/16/2019 15:18:23 Imaging Results Imaging Date Name Status LastModified by Organiz ation Details LastModified Time 06/22/2017 MRI, knee, w/o contrast completed BAR[facility] Information not available 08/17/2019 12:24:44 05/26/2017 XR, knee completed [facility] Information no t available 08/17/2019 12:24:44 Procedure Notes None recorded. Medical Equipment None Reported. Allergies Allergen ID Allergen Name Allergen Category Reaction Reaction Severity Criticality Documentation Date Start Date Code Code System Note Provider Name and Address Organization Details Recorded Time 46522 Relafen medicatio n itching Not available Not available 08/16/201976112 4 RxNorm [facility] 0 15:02:12 Medications Name Sig Start Date Stop Date Status Note LastModified by Organization Details LastModified Time primidone 50 mg tablet active Not Available Not Available No t Available atorvastatin 20 mg tablet active Not Available Not Available Not Available hydrocodone 5 mg-acetaminop hen 325 mg tablet Take 1 tablet every 6 hours by oral route. 2019 active Not Available Not Available Not Avai lable clonazepam 1 mg tablet active Not Available Not Available No t Available gabapentin 300 mg capsule active Not Available Not Available Not Available folic acid 1 mg tablet active Not Available Not Available No t Available carbidopa 25 mg-levodopa 100 mg tablet active Not Available Not Availabl e Not Available bupropion HCl XL 150 mg 24 hr tablet, extended release active Not Available Not Available Not Available Suprep Bowel Prep Kit 17.5 gram-3.13 gram-1.6 gram oral solution 08/15 completed Not Available Not Available Not Available Vitals Date Recorded Body height Body mass index (BMI) Body weight Heart rate Body temperature Systolic blood pressure Diastolic blood pressure Provider Name and Address Organization Details Last Updated DateTime 0 170.18 cm 21.9 kg/m2 53132.9 3 g 69 /min 98.2 [degF] 179 mm[Hg] 76 mm[Hg] Tay Rodarte [employer] [facility] 0 15:01:03 Date Recorded Body height Body mass index (BMI) Body weight Heart rate Body temperature Systolic blood pressure Diastolic blood pressure Provider Name and Address Organization Details Last Updated DateTime 0 170.18 cm 21.9 kg/m2 15067.9 3 g 69 /min 98.1 [degF] 145 mm[Hg] 63 mm[Hg] [facility] [employer] [facility] 0 14:05:39 Social History None recorded. Functional Status None recorded. Mental Status None recorded. Family History Nothing Reported. Medical History Condition Response Other Cancer N HIV or AIDS N Coronary Artery Disease N Gout N Kidney Stones N Hyperthyroidism N Breast Cancer N Head Trauma/Injury N Hernia N Lung Cancer N Hypothyroidism N Lung Disease N Blood Clots N Depression N COPD N Pacemaker Y Anxiety Disorder N Arthritis Y Kidney Cancer N Cancer N Stroke N Neck Injury N Leg or Foot Ulcers N High Cholesterol Y Liver Disease N Rheumatoid Arthritis N Headaches N Fibromyalgia N Kidney Disease N Heart Problems N Prostate Cancer N Migraines N Thyroid Problems N Anemia N Multiple Sclerosis N Tendon Tear N Ulcers N Heart Attack ([place]) N Diabetes N Bleeding Disorder N Seizures/Epilepsy N Tuberculosis N Urinary Tract Infection N Back Problems N Diverticulitis N Asthma N Lupus N Peripheral Vascular Disease N Sleep Disorder N GERD/Reflux N Hepatitis N Aneurysm N Thyroid Cancer N Heart Disease Y Pulmonary Embolism N Hypertension N Osteoporosis N Past Encounters Encounter ID Performer Location Encounter Start Date Encounter Closed Date Diagnosis/Indication Diagnosis SNOMED-CT Code Diagnosis ICD10 Code Diagnosis Note [id number] [facility] [id number] [place] [id number] 08/16/2019 14:57:46 08/16/2019 16:10:18 Malaise and fatigue 903999990 R53.83 M89.9 M94.9 Z12.5 Z01.812 R53.81 E55.9 [id number] [facility] [id number] [place] [id number] 10/16/2019 13:51:37 10/16/2019 15:44:46 Health Concerns Section Related Observation LastModified by Organization Detai ls LastModified Time None Recorded Concern Status LastModified by Organization Details LastModified Time None Recorded Advance Directives Directive None Recorded Payers Encounter Date Sequence Insurance Name Policy Number Policy Kelly Covered Member ID Kelly Member ID Guarantor Name 08/16/2019 1 [place] Car L Javier [id number] Car L Javier 08/16/2019 2 [employer] (INDEMNITY) [id number] Car [place] [id number] Car Singh Javier 10/16/2019 1 [place] Car L Javier [id number] Car L Javier 10/16/2019 2 [employer] (INDEMNITY) [id number] Car L [place] [id number] Car Singh Javier
--- OUTSIDE RECORDS SUMMARY | 2024-04-17 14:25 | XMS_ITS | Referral Summary ---
Author Organization [facility] [address] [facility] [address] Address [address] [place] [address] Care Team Providers Care Ehs Teacher Name Role Phone Az Arroyo MD Primary Care Provider Encounters Date Type Department Care Team Description 03/21/2024 Orders Only [facility] Cardiology [address] [place] [address] [place] [phone] Pop Musa MD Cardiac pacemaker in situ (Primary Dx); Complete heart block (CMS/HCC) (HCC) 03/20/2024 9:30 AM HIGH SCHOOL MUSIC DIRECTOR Ancillary Procedure [facility] Cardiology [address] [place] [address] [place] [phone] Cardiac pacemaker in situ [Z95.0] (Primary Dx); CHB (complete heart block) (CMS/HCC) (HCC) from Last 3 Months Allergies Active Allergy Reactions Criticality Noted Date Comments Tita Waters High 12/11/2007 Medications atorvastatin (LIPITOR) 20 mg [...] patient was located at home in the [facility]. The patient visit started at 1555 and [...] visit. Assessment & Plan (04/04/2020 4:31 PM HIGH SCHOOL MUSIC DIRECTOR): - 79 y.o. man with probable Parkinson's [...] patient was located at home in the [facility]. The patient visit started at 1038 and [...] reviewed outside records from his PMD, Dr. Arroyo (20 pages) - Falls: he had one [...] appreciable evidence of significant daytime drowsiness on Vincent scale. No appreciable evidence of RBD on [...] neurologist's office to (Dr. Bush in [facility]) to get results of tests for [...] Dx; 3rd Degree AV Block. DOI 12/09/2017. Alfredo remote monitoring Q3 mo, office pacer checks Q1 yr. 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 Essential tremor 03/07/2016 Pre-diabetes 08/16/2011 HTN (hypertension) 07/26/2011 Depression 12/11/2007 Hyperlipidemia 12/11/2007 Immunizations Name Administration Dates Next Due Influenza, Quadrivalent, Spl it, Preservative Free, Intramuscular 12/11/2017 Influenza, Trivalent, IM (MDV) 4,12/15/2012,11/25/2009,11/25,01/14/2006,12/31/2004,12/21/2002 ,12/28/2001,01/23/2001,01/18/2000 Pneumococcal Polysaccharide PPV23 04/05/2007,09/2006 Social History Tobacco Use Types Packs/Day Years [...] on file Legal Sex Male 2:52 AM HIGH SCHOOL MUSIC DIRECTOR Gender Identity Male 12/12/2017 10:40 AM CDT Sexual Orientation Not on file 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
--- OUTSIDE RECORDS SUMMARY | 2024-04-17 14:25 | XMS_ITS | Clinical Summary ---
Author Organization [facility] Address [address] [place] [address] Care Team Providers Care Brake Holder Name Role Phone Az Arroyo MD Primary Care Provider Allergies Active Allergy Reactions Criticality Noted Date Comments Tita Burgos High 12/11/2007 Medications clonazePAM (KlonoPIN) 1 mg tabletIndications:Fatigu e, unspecified type,Iron deficiency anemia, unspecified iron deficiency anemia type,Hypercoagulable state,Thrombosis with hyperhomocysteinemia Take 1 mg by mouth daily at bedtime. Active atorvastatin (LIPITOR) 20 mg tabletIndications:Fatigu e, unspecified type,Iron deficiency anemia, unspecified iron deficiency anemia type,Hypercoagulable state,Thrombosis with hyperhomocysteinemia Take 20 mg by mouth late in the day. Active primidone (MYSOLINE) 50 mg tablet Take 100 mg by mouth every 12 hours. 02/13/20 17 Active carbidopa-levodopa (SINEMET) 25-100 mg tablet Take 2 Tablets by mouth 3 times daily. 04/04/19 21 Active aspirin (MIKE CHEWABLE) 81 mg Tablet, Chewable Take 81 mg by mouth daily. Active meloxicam (MOBIC) 7.5 mg tablet TAKE 1 TABLET BY MOUTH ONCE DAILY NEEDED FOR SEVERE PAIN (SCALE SCORE 7-10) 12/25/19 22 Active gabapentin (NEURONTIN) 300 mg capsule Take 600 mg by mouth 3 times daily. 05/11/19 23 Active buPROPion HCL (WELLBUTRIN XL) 150 mg Extended Release 24 hour tablet Take 150 mg by mouth daily in the morning. 05/14/19 23 Active Active Problems Patient Care Coordination No te Formatting of this note migh t be different from the original. Vascular Care - Dr. Efraín Miramontes MD, [facility], [facility] Heart and Vascular - [address] [facility] [address] Rima Dangelo - DPM Pop Musa MD - Bleach Analyst at [facility] [address] [place] [id number] Problem Noted Date Diagnosed Date PVD (peripheral vascular disease) 08/25/2020 Dyslipidemia 08/25/2020 Hypercoagulable state 07/26/2016 Pre-diabetes 08/16/2011 HTN (hypertension) 07/26/2011 Hyperlipidemia 12/11/2007 Depression 12/11/2007 Encounters Date Type Department Care Team Description 04/03/2024 External Device Data [facility] ABSTRACTION Provider, Abstract 03/28/2024 External Device Data [facility] ABSTRACTION Provider, Abstract 03/28/2024 External Device Data [facility] ABSTRACTION Provider, Abstract from Last 3 Months Immunizations Immunization Administration Dates Next Due (AREXVY)(60 YR UP) RSV, VIVIAN MBINANT, PROTEIN SUBUNIT RSVPREF, ADJUVANT RECONSTITUTED, 0.5 ML, PF 01/06/2024 (COMIRNATY)(12 YR UP) COVID- 19 VACCINE, MRNA, SPIKE PROTEIN, LNP, ANGELITA(PF) 30 MCG/0.3 ML IM SUSP 01/06/2024,12/18/2022 (PNEUMOVAX 23)(50 YRS UP) PN EUMOCOCCAL POLYSACCHARIDE (PPV23) 0.5 ML, IM 04/05/2007,05/11/2006 (SHINGRIX)(50 YRS UP) ZOSTER VACCINE RECOMBINANT, 0.5 ML, IM 01/23/2024 INFLUENZA VACCINE HIGH DOSE QUADRIVALENT 65 YR UP PF IM 12/18/2022 INFLUENZA VACCINE HIGH DOSE TRIVALENT SPLIT VIRUS, (65 YR UP), 0.5ML (PF), IM 01/06/2024 Influenza Seasonal Unspecifi ed Formulation IM 12/06/2019,11/25/2009,01/14/2006,12/31,12/21/2002,12/28/2001,01/23/2001 Influenza Vaccine Split 3+ Yrs IM 11/25/2008 Family History Medical History Relation Name Comments Healthy Brother Respiratory Disease Brother Cancer Father Heart Disease Mother Colon Cancer Sister 1 Colon Cancer Sister 2 Relation Name Status Comments Brother Alive Father Mother Sister 1 Alive Sister 2 Social History Tobacco Use Types Packs/Day Years Used Date Smoking Tobacco: Former Cigarettes 1 18 1 [birth year]/1949 - 02/16/1968 Smokeless Tobacco: Never Tobacco Cessation:Counseling Given: Not Answered Alcohol Use Standard Drinks/Week Comments Not Currently 17.5 (1 standard dri nk = 0.6 oz pure alcohol) 09/16/20 Pt states he has not had a drink in 6 years Feeling Safe Answer Date Recorded Are you in a relationship wi th someone who hurts you emotionally and/or physically? No 07/23/2022 Food Insecurity Answer Date Recorded Social/Environmental Concerns No concerns Transportation Needs Answer Date Record ed Social/Environmental Concerns No concerns Housing Stability Answer Date Recorded Social/Environmental Concerns No concerns Utility Needs Answer Date Recorded Social/Environmental Concerns No concerns Sex and Gender Information Value Date Recorded Sex Assigned at Not on file Legal Sex Male 10:37 AM CDT Gender Identity Not on file Sexual Orientation Not on file Last Filed Vital Signs Vital Sign Reading Time Taken Comments Blood Pressure 150/92 12/15/2022 12:47 PM CDT Pulse 59 12/15/2022 12:41 PM CDT Temperature 36.4 C (97.6 F) 07/23/2022 7:48 AM CDT Respiratory Rate 18 07/23/2022 3:30 PM CDT Oxygen Saturation 97% 12/15/2022 12:41 PM CDT Inhaled Oxygen Concentration - - Weight 63 kg (139 lb) 12/15/2022 12:41 PM CDT Height 170.2 cm (5' 7 ) 12/15/2022 12:41 PM CDT Body Mass Index 21.77 12/15/2022 12:41 PM CDT Plan of Treatment Upcoming Encounters Date Type Department Care Team (Late st Contact Info) Description 06/21/2024 10:30 AM CDT Office Visit [facility] Heart and Vascular - [address] [facility] [address] [address] [facility] [address] [place] [address] Efraín [place] [address] [facility] [address] [place] [address] Health Maintenance Due Date Last Done Comments DTAP/TDAP/TD VACCINES (1 - Tdap) 08[birth year]28/1959 PNEUMOCOCCAL VACCINE 65+ YEA RS (2 of 2 - PCV) 04/05/2008 04/05/2007, 05/11/2006 COLORECTAL SCREENING 10/03/2023 10/02/2018, 08/15/19 14 ZOSTER VACCINE (2 of 2) 03/19/2024 01/23/2024 COVID-19 Vaccine Completed 01/06/2024, 12/18/2022 INFLUENZA VACCINE Completed 01/06/2024, , 12/06/2019, Additional history exists RSV VACCINE (60+ or ) Completed 01/06/2024 Medical Devices Implanted Type Area Pulp Mill Team Leader Device Identifier Shelf Expiration Date Model / Serial / Lot Dev Closure Angioseal 6fr Vip [id number] - [id number] Implanted:Qty : 1 on 07/23/2022 at [facility] Closure Device Right: Groin [employer] 04/06/2023 [id number] / / [id number] Mesh Prolene Lg Phsl - Sna Implanted:Qty : 1 on 03/10/2012 by Colt Lopez MD Mesh Left: Groin [employer] 10/04/2016 PHSL / NA / [id number] Pacemaker-03/07 Implanted:03/2017 (Quantity not on file) Pacemaker Stent Omnlnk 8x29mm [id number] - [id number] Implanted:Qty : 1 on 09/16/2020 at [facility] Stent Left: Leg LASSITER- VASC DEVICE 07/05/2023 [id number] / / [id number] Insurance HUMANA CHOICE PPO [facility] RX TRANSCORP Medicare Part D RX Oobafit Medicare Part B Care Teams Brake Holder Relationship Specialty Start Date End Date Az Arroyo MD [address] [facility] [address] [place] [address] PCP - General Family Practice 07/20/16
--- OUTSIDE RECORDS SUMMARY | 2024-04-17 14:25 | XMS_ITS | Clinical Summary ---
Author Organization [facility] Address [address] [place] [address] Care Team Providers Care Retail Loss Prevention Specialist Name Role Phone Az Arroyo MD Primary Care Provider [phone] Allergies Active Allergy Reactions Criticality Noted Date Comments Nabumetone Unknown 05/18/2022 Medications primidone (MYSOLINE) 50 MG tablet Take 1 tablet (50 mg total) by mouth daily. 04/06/2022 Active meloxicam (MOBIC) 7.5 MG tablet Take 1 tablet (7.5 mg total) by mouth daily as needed. 05/06/2022 Active gabapentin (NEURONTIN) 300 MG capsule Take 3 capsules (900 mg total) by mouth 3 (three) times daily. 05/10/2022 Active folic acid (FOLVITE) 1 MG tablet Take 1 tablet (1 mg total) by mouth daily. 12/03/2021 Active clonazePAM (KLONOPIN) 1 MG tablet Take 1 tablet (1 mg total) by mouth nightly as needed. 04/19/2022 Active carbidopa-levod opa (SINEMET) 25-100 MG tablet Take 2 tablets by mouth 3 (three) times daily. 04/01/2022 Active buPROPion XL (WELLBUTRIN XL) 150 MG 24 hr tablet Take 1 tablet (150 mg total) by mouth every morning. 05/13/2022 Active atorvastatin (LIPITOR) 20 MG tablet Take 1 tablet (20 mg total) by mouth daily. 03/30/2022 Active aspirin EC (ECOTRIN) 81 MG tablet Take 1 tablet (81 mg total) by mouth daily. Active Family History Medical History Relation Comments Heart Disease Mother Hypertension Mother Cancer Son Relation Status Comments Father Mother Son Social History Tobacco Use Types Packs/Day Years Used Date Smoking Tobacco: Never Smokeless Tobacco: Never Tobacco Cessation:Counseling Given: Not Answered Alcohol Use Standard Drinks/Week Comments Not Currently 0 (1 standard drink = 0.6 oz pur e alcohol) Sex and Gender Information Value Date Recorded Sex Assigned at Not on file Legal Sex Male 1:25 AM CDT Gender Identity Not on file Sexual Orientation Not on file Last Filed Vital Signs Vital Sign Reading Time Taken Comments Blood Pressure 144/62 05/21/2022 2:15 PM CDT Pulse 68 05/21/2022 11:50 AM CDT Temperature 36.2 C (97.2 F) 05/21/2022 2:15 PM CDT Respiratory Rate 18 05/21/2022 11:49 AM CDT Oxygen Saturation 98% 05/21/2022 2:15 PM CDT Inhaled Oxygen Concentration - - Weight 64.1 kg (141 lb 5 oz) 05/21/2022 10:25 AM CDT Height 170.2 cm (5' 7 ) 05/18/2022 12:01 AM CDT Body Mass Index 22.13 05/18/2022 12:01 AM CDT Plan of Treatment Health Maintenance Due Date Last Done Comments DTaP, Tdap and Td Vaccines (1 - Tdap) 08/28/1959 Zoster Vaccines (1 of 2) 08/28/1989 Annual Medicare Wellness Visit 08/28/2004 Pneumococcal Vaccine: 65+ Years (2 of 2 - PCV) 04/05/2008 04/05/2007, 05/11/2006 RSV Immunization or 60+ Years (1 - 1-dose 75+ series) 08/28/2014 COVID-19 Vaccine ( season) 2023 01/11/2022, 06/07/2021, 01/21/2021, Additional history exists Influenza Adult (#1) 2023 01/11/2022, 12/06/2019, 12/11/2017, Additional history exists Meningococcal B Vaccine Aged Out No l onger eligible based on patient's age to complete this topic Meningococcal Vaccine Aged Out No edel dino eligible based on patient's age to complete this topic RSV Immunizations Under 20 Months Aged Out No longer eligible based on patient's age to complete this topic Insurance HUMANA Care Teams Retail Loss Prevention Specialist Relationship Specialty Start Date End Date Az Arroyo MD [address] [place] [address] PCP - General FAMILY PRACTICE 05/21/22
--- OUTSIDE RECORDS SUMMARY | 2024-04-17 14:25 | XMS_ITS | Encounter Summary ---
Author Organization [facility] Address [address] [place] [address] Phone Care Team Providers Care Index Clerk Name Role Phone Az Arroyo MD Primary Care Provider Encounter Details Date Type Department Care Team (Latest Contact Info) Description 04/07/2020 Orders Only [facility] Scanning, Provider Social History Tobacco Use Types Packs/Day Years Used Date Smoking Tobacco: Never Smokeless Tobacco: Never Alcohol Use Standard Drinks/Week Comments No 0 (1 standard drink = 0.6 oz pur e alcohol) Sex and Gender Information Value Date Recorded Sex Assigned at Not on file Legal Sex Male 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 Gender Identity Male 12/12/2017 10:40 AM CDT Sexual Orientation Not on file 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
--- NOTE | 2024-04-17 16:23 | ECG_ITS ---
Test Date: 2024-04-17 18:35:51 Measurements Intervals [place] Rate: 69 P: 52 [place]: 189 QRS: -56 QRSD: 184 T: 98 QT: 474 QTc: 509 Interpretive Statements ATRIAL SENSE- ELECTRONIC VENTRICULAR PACEMAKER NO FURTHER INTERPRETATION IS POSSIBLE ATYPICAL ECG No previous ECG available for comparison Electronically Signed On 04-17-2024 20:06:05 SEED LABORATORY TECHNICIAN by Yinka Lawler D.O.
--- NOTE | 2024-04-17 16:23 | ED_ITS ---
HPI - Weakness General Chief complaint: Weakness <VISHAL Terry Last Filed: 04/17/24 18:58> Stated complaint: left sided weakness <VISHAL Terry Last Filed: 04/17/24 18:58> Time Seen by Provider: 04/17/24 16:23 <VISHAL Terry Last Filed: 04/17/24 18:58> Focused HPI: Patient is an 83-year-old male, past medical history of pacemaker, Parkinson's disease, CKD, PAD, who presents to the ED via EMS with c/o L sided weakness. Patient reports around 12 to 12:30 p.m. today he reported feeling increasingly weak. States he was getting ready to go to a blood draw appointment today and could not figure out how to lock his front door. States he also had difficulty raising his left arm to get his coat on or raising his left leg to get into the car. They went to the blood draw appointment where they then contacted EMS. Patient states he feels persistently weak all over. Family notes that he had difficulty buttoning his pants in the ED waiting room bathroom. Patient otherwise denies any symptoms. No recent illness. Family denied any slurred speech or confusion. GENERAL: Elderly but well appearing, well-nourished, in no acute distress. HEAD: Normocephalic, atraumatic. RESPIRATORY: Airway patent, respirations nonlabored. Clear to auscultation bilaterally, no rales, rhonchi, wheezing. CARDIOVASCULAR: Regular rate and rhythm. Peripheral pulses 2+ and equal bilaterally. SKIN: Warm, dry, normal color. No rashes. NEURO: A&O X3. Speech clear. No aphasia or dysarthria. Follows commands. CN II- XII intact. No appreciable facial droop. Sensation grossly intact. Repetitive tremulous movement of neck consistent with chronic parkinson's disease. Strength 5/5 in upper extremities bilaterally. No pronator drift. 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 PSYCHIATRIC: Appropriate mood and affect. Normal interaction. Patient screened in triage and initial orders placed.? ?Additional care and disposition to be based upon?diagnostic testing and treatment. <VISHAL Terry Last Filed: 04/17/24 18:58> Source: patient and family <Mei Flores PA-C - Last Filed: 04/17/24 18:58> family ( and daughter) <Karoline Knox MD - Last Filed: 04/19/24 10:30> Mode of arrival: EMS <Mei Flores PA-C - Last Filed: 04/17/24 18:58> Limitations: no limitations <Mei Flores PA-C - Last Filed: 04/17/24 18:58> History of Present Illness HPI Narrative: Agree with the above with the following additions/corrections: It is unclear if LKW was 12-12:30pm or more like 11-11:30am. Patient sees Dr. Emily Miramontes cardiovascular/vascular surgeon through [facility]. Patient states he can unlock the door or get his coat on due to his inability to lift his arm up and he also is having difficulty getting his foot into the car. The episode lasted greater than 60 minutes. No history of TIA or CVA. No history of diabetes mellitus. He has been weak over the last several days but this is reportedly chronic in the setting his Parkinson's. He also reports a history of neuropathy. There were no speech changes during the episode. He resides at home. His primary care physician is Dr. Arroyo. His daughter notes that recently he has been having episodes of becoming unresponsive after eating. He reports that he is still awake during these episodes and he can hear but just cannot respond. No seizure-like activity has been reported during this. He has baseline tremulous cyst secondary to parkinsonism any states that this also sometimes causes his head to tremor. <Karoline Knox MD - Last Filed: 04/19/24 10:30> Related Data Home medications: Home Medications ?Medication ?Instructions ?Recorded ?Confirmed ?Last Taken ?Type aspirin 81 mg tablet,delayed 81 mg PO DAILY 10/08/21 04/02/24 Unknown History release <Mei Flores PA-C - Last Filed: 04/17/24 18:58> Allergies/Adverse reactions: Allergies Allergy/AdvReac Type Severity Reaction Status Date / Time nabumetone Allergy Unknown unk Verified 04/02/24 10:59 <Mei Flores PA-C - Last Filed: 04/17/24 18:58> [facility] Past Medical History Medical History: Medical History Parkinsons disease Peripheral neuropathy Daytime hypersomnolence Polyneuropathy Depression IFG (impaired fasting glucose) Major depression in remission CKD (chronic kidney disease), stage III PAD (peripheral artery disease) <VISHAL Terry Last Filed: 04/17/24 18:58> Surgical History Surgical History: Surgical History S/P arterial stent LLE, RLE <VISHAL Terry Last Filed: 04/17/24 18:58> Family History Family History: Family History Mother Family history of heart disease in male family member before age 55 Family history of coronary artery disease Sibling Patient's brother is in good health Carcinoma of colon Father Malignant neoplasm of prostate Other Cerebrovascular accident Hypertension <VISHAL Terry Last Filed: 04/17/24 18:58> Social History Social History: Social History (Updated 04/19/24 @ 10:26 by Karoline Knox MD) Social History: Has a daughter Smoking status: Former smoker Tobacco type: cigarettes Second hand tobacco smoke exposure: No Smoking end date: 03/07/74 Alcohol intake: never Substance use: never Substance use type: does not use Lack of Transportation: No Lack of Food: Never True Current Housing: I Have Housing Concerned About Future Housing: No Difficulty Paying Gas/Electric Bills: No Difficulty Paying for Meds: No Currently Unemployed: No Education: High School Diploma/GED Difficulty w/ Childcare or Family Care: No Living arrangements: with family Occupation/Education: retired Gender identity (if verbalized by the patient): Male Sexual Orientation (if Verbalized by the Patient): Straight or Heterosexual <VISHAL Terry Last Filed: 04/17/24 18:58> Exam 2 Narrative: GENERAL: Well-appearing, well-nourished, and in no acute distress. HEAD: Normocephalic, atraumatic. EYES: Non injected, non icteric. Horizontal extraocular movements intact. No Loss of peripheral vision. ENT: Nares clear, no rhinorrhea or epistaxis. NECK: Supple. CHEST: Speaking in full sentences. No respiratory distress. HEART: Regular rate and rhythm. . ABDOMEN: Soft, nondistended. EXTREMITIES: Normal range of motion. No lower extremity edema. SKIN: Warm, dry, no rash. NEURO: No focal deficits. Alert and oriented x3. Answers questions appropriately. Follows commands. Speaks clearly without aphasia or dysarthria. Unable to assess extinction as patient has sensory deficits throughout the left upper extremity and left lower extremity. No motor drift x4. No facial palsy. No ataxia on [id number]. Patient does have a baseline tremor but is able to perform this. PSYCH: Normal mood and affect. <Karoline Knox MD - Last Filed: 04/19/24 10:30> Course Vital Signs Vital signs: Vital Signs Temperature 97.4 F L 04/17/24 13:46 Pulse Rate 66 04/17/24 13:46 Respiratory Rate 16 04/17/24 13:46 Blood Pressure 190/75 H 04/17/24 13:46 Pulse Oximetry 100 04/17/24 13:46 Oxygen Delivery Room Air 04/17/24 13:46 Temperature 97.4 F L 04/17/24 13:46 Pulse Rate 67 04/17/24 22:40 Respiratory Rate 20 04/17/24 22:40 Blood Pressure 172/68 H 04/17/24 22:40 Pulse Oximetry 97 04/17/24 22:40 Oxygen Delivery Room Air 04/17/24 18:50 <Mei Flores PA-C - Last Filed: 04/17/24 18:58> Vital Signs Temperature 97.4 F L 04/17/24 13:46 Pulse Rate 66 04/17/24 13:46 Respiratory Rate 16 04/17/24 13:46 Blood Pressure 190/75 H 04/17/24 13:46 Pulse Oximetry 100 04/17/24 13:46 Oxygen Delivery Room Air 04/17/24 13:46 Temperature 97.4 F L 04/17/24 13:46 Pulse Rate 67 04/17/24 22:40 Respiratory Rate 20 04/17/24 22:40 Blood Pressure 172/68 H 04/17/24 22:40 Pulse Oximetry 97 04/17/24 22:40 Oxygen Delivery Room Air 04/17/24 18:50 <Karoline Knox MD - Last Filed: 04/19/24 10:30> MDM - Weakness MDM Narrative Medical decision making narrative: MSE by PIO in triage. <Mei Flores PA-C - Last Filed: 04/17/24 18:58> MSE by PIO in triage. This is a 83 year old male who presents to the emergency department with concern for possible stroke. Last known well is unclear, possibly between 11 and 11:30 versus 12 and 12:30pm. The patient is protecting their airway which is patent. In the emergency department he is afebrile of signs notable for hypertension. Normal accuchck reportedly. An IV is established by nursing staff blood work sent to the lab for evaluation. An EKG will be performed. NIHSS was initially 0 in triage. Improving neuro exam more consistent with TIA (cerebral thrombus/embolus without infarct): ABCD2 Risk Score Age greater than or equal to 60: 1 SBP greater than or equal to140 or greater than or equal to DBP 90 :1 Unilateral weakness w or w/o speech impairment 2 TIA > or =60 min 2 Diabetes 0 Total Score 6 points. Per the validation study, 6-7 points: High Risk 2-Day Stroke Risk: 8.1% 7-Day Stroke Risk: 11.7% 90-Day Stroke Risk: 17.8% NIHSS was evaluated per below on my assessment at approximately 19:15. At this time he has the following deficits: NIHSS Level Of consciousness: 0 Month and age:0 Follows commands:0 Gaze palsy:0 Visual raines:0 Facial palsy:0 Left arm motor drift:0 Right arm motor drift:0 Left leg motor drift:0 Right leg motor drift:0 Limb ataxia:0 Sensation: 2 Aphasia:0 Dysarthria:0 Extinction: (unable to assess) Total: 2 CT shows: M2 lesion as below. Patient has comorbidities that complexity management. Namely, Parkinsons' , CKD, pacemaker and peripheral vascular disease. Shared decision making with patient and family who would like to proceed with discussion with stroke center for possible consideration of intervention. Labs including troponin show: Isolated azotemia which has been appreciated previously. Roberta Stroke RN at [facility] 19:45 as well as neurologist physician Dr Trujillo. They are having difficulty pulling of the images. referral coordinator called back 20:35 and said Interventionalist said no intervention needed; recommended aspirin and Plavix. Asked if there is still interested in transferring the patient. I did explain that there is given the fact that we do not have pacemaker compatible MRI capabilities. Goal is to now maintain normotension/permissive hypertension as well as euglycemia. Current AHA/ASA?guidelines?recommend?permissive hypertension?with a blood pressure goal of less than or equal to 220/120 mm Hg for the first 24?48 hours. A 1 time dose of labetalol had been given in the interim while awaiting discussion with Roberta to see if pain each it would be a candidate for thrombectomy as that would be a target blood pressure below 180/105 mm Hg. Spoke with ED attending Dr Purcell ED to ED transfer approved. 20:45. Roberta Quinn on [facility]. Disc included. Transportation arranged. Family updated. <Karoline Knox MD - Last Filed: 04/19/24 10:30> Differential Diagnosis Differential diagnosis: Likely other (TIA, CVA, hypoglycemia, ) <Karoline Knox MD - Last Filed: 04/19/24 10:30> Lab Data Attestation: I reviewed the patient's lab results. <Karoline Knox MD - Last Filed: 04/19/24 10:30> Result diagrams: 04/17/24 16:41 04/17/24 16:41 <Mei Flores PA-C - Last Filed: 04/17/24 18:58> Labs: Lab Results 04/17/24 04/17/24 04/17/24 Range/Units 16:41 18:39 19:17 WBC 8.6 (4.5-10.0) K/mm3 RBC 4.58 L (4.6-6.20) M/mm3 Hgb 13.6 L (14.0-18.0) g/dL Hct 43.4 (42.0-52.0) % MCV 94.8 (80-100) fl MCH 29.7 (26-34) pg MCHC 31.3 L (32-36) g/dl RDW 14.6 H (11.5-14.5) % Plt Count 285 (150-375) k/mm3 MPV 10.0 (7.4-10.4) fl Immature Gran % (Auto) 0.3 (0-0.5) % Neut % (Auto) 67.0 (45.5-73.1) % Lymph % (Auto) 20.4 (18.3-44.2) % [place] % (Auto) 9.2 H (2.6-8.5) % Eos % (Auto) 2.8 (0-4.4) % Baso % (Auto) 0.3 (0.2-1.2) % Lymph # (Auto) 1.75 (0.9-3.2) K/mm3 [place] # (Auto) 0.8 H (0.1-0.6) K/mm3 Eos # (Auto) 0.2 (0-0.3) K/mm3 Baso # (Auto) 0.0 (0.0-0.1) K/mm3 Abs Immat Gran (auto) 0.03 (0.00-0.031) K/mm3 Absolute Neuts (auto) 5.7 (1.3-6.7) K/mm3 Absolute Nucleated RBC 0.000 (0.0-0.012) K/mm3 Nucleated RBC % 0.0 (0.0-0.2) % PT 12.3 (11.1-14.7) Seconds INR 0.9 APTT 28.1 (22.3-36.8) Seconds Sodium 139 (137-145) mmol/L Potassium 4.4 (3.4-5.0) mmol/L Chloride 103 (98-107) mmol/L Carbon Dioxide 27 (22-30) mmol/L Anion Gap 9 (4-12) mmol/L BUN 30 H (9-20) mg/dL Creatinine 1.17 (0.7-1.3) mg/dL Estim Creat Clear Calc Not Reportable Estimated GFR 59 (59 - ) Glucose 102 (65-110) mg/dL POC Capillary Glucose 93 (65-105) mg/dl Calcium 8.9 (8.4-10.2) mg/dL Total Bilirubin 0.5 (0.2-1.3) mg/dL AST 24 (17-59) U/L ALT 13 (6-50) U/L Alkaline Phosphatase 89 (38-126) U/L Troponin I 0.025 (0.000-0.034) ng/mL Total Protein 7.0 (6.3-8.2) g/dL Albumin 3.7 (3.5-5.1) g/dL Urine Color Yellow (Yellow) Urine Appearance Clear (Clear) Urine pH 5.5 (5.0-9.0) Ur Specific [place] > 1.045 H (1.001-1.035) Urine Protein 2+ H (Negative) mg/dL Urine Glucose (UA) Negative (Negative) mg/dL Urine Ketones Negative (Negative) mg/dL Ur Blood (Man) Trace (Negative) Urine Nitrate Negative (Negative) Urine Bilirubin Negative (Negative) Urine Urobilinogen 0.2 (<2.0) mg/dL Leukocyte Esterase Rfl Negative (Negative) AURELIANO/UL Urine RBC 3-5 H (0-2) /hpf Urine WBC 0-5 (0-3) /hpf Ur Squamous Epith Cells None seen (Few) /hpf Urine Bacteria None seen /hpf Urine Casts 0-2 <Mei Flores PA-C - Last Filed: 04/17/24 18:58> Lab Results 04/17/24 04/17/24 04/17/24 Range/Units 16:41 18:39 19:17 WBC 8.6 (4.5-10.0) K/mm3 RBC 4.58 L (4.6-6.20) M/mm3 Hgb 13.6 L (14.0-18.0) g/dL Hct 43.4 (42.0-52.0) % MCV 94.8 (80-100) fl MCH 29.7 (26-34) pg MCHC 31.3 L (32-36) g/dl RDW 14.6 H (11.5-14.5) % Plt Count 285 (150-375) k/mm3 MPV 10.0 (7.4-10.4) fl Immature Gran % (Auto) 0.3 (0-0.5) % Neut % (Auto) 67.0 (45.5-73.1) % Lymph % (Auto) 20.4 (18.3-44.2) % [place] % (Auto) 9.2 H (2.6-8.5) % Eos % (Auto) 2.8 (0-4.4) % Baso % (Auto) 0.3 (0.2-1.2) % Lymph # (Auto) 1.75 (0.9-3.2) K/mm3 [place] # (Auto) 0.8 H (0.1-0.6) K/mm3 Eos # (Auto) 0.2 (0-0.3) K/mm3 Baso # (Auto) 0.0 (0.0-0.1) K/mm3 Abs Immat Gran (auto) 0.03 (0.00-0.031) K/mm3 Absolute Neuts (auto) 5.7 (1.3-6.7) K/mm3 Absolute Nucleated RBC 0.000 (0.0-0.012) K/mm3 Nucleated RBC % 0.0 (0.0-0.2) % PT 12.3 (11.1-14.7) Seconds INR 0.9 APTT 28.1 (22.3-36.8) Seconds Sodium 139 (137-145) mmol/L Potassium 4.4 (3.4-5.0) mmol/L Chloride 103 (98-107) mmol/L Carbon Dioxide 27 (22-30) mmol/L Anion Gap 9 (4-12) mmol/L BUN 30 H (9-20) mg/dL Creatinine 1.17 (0.7-1.3) mg/dL Estim Creat Clear Calc Not Reportable Estimated GFR 59 (59 - ) Glucose 102 (65-110) mg/dL POC Capillary Glucose 93 (65-105) mg/dl Calcium 8.9 (8.4-10.2) mg/dL Total Bilirubin 0.5 (0.2-1.3) mg/dL AST 24 (17-59) U/L ALT 13 (6-50) U/L Alkaline Phosphatase 89 (38-126) U/L Troponin I 0.025 (0.000-0.034) ng/mL Total Protein 7.0 (6.3-8.2) g/dL Albumin 3.7 (3.5-5.1) g/dL Urine Color Yellow (Yellow) Urine Appearance Clear (Clear) Urine pH 5.5 (5.0-9.0) Ur Specific [place] > 1.045 H (1.001-1.035) Urine Protein 2+ H (Negative) mg/dL Urine Glucose (UA) Negative (Negative) mg/dL Urine Ketones Negative (Negative) mg/dL Ur Blood (Man) Trace (Negative) Urine Nitrate Negative (Negative) Urine Bilirubin Negative (Negative) Urine Urobilinogen 0.2 (<2.0) mg/dL Leukocyte Esterase Rfl Negative (Negative) AURELIANO/UL Urine RBC 3-5 H (0-2) /hpf Urine WBC 0-5 (0-3) /hpf Ur Squamous Epith Cells None seen (Few) /hpf Urine Bacteria None seen /hpf Urine Casts 0-2 <Karoline Knox MD - Last Filed: 04/19/24 10:30> Imaging Data Radiologist's impression: Impressions Head/Neck CTA 04/17/24 17:26 IMPRESSION: 1. Stable moderate nonspecific cerebral white matter disease, which likely represents chronic small vessel ischemic disease. 2. Calcified embolus in a right M2 middle cerebral artery branch with severe stenosis. 3. 0% stenosis of the proximal internal carotid arteries relative to normal distal artery lumen diameters (NASCET criteria). Chest X-Ray 04/17/24 17:34 IMPRESSION: No focal infiltrate or effusion. <Karoline Knox MD - Last Filed: 04/19/24 10:30> ECG Data EKG #1: Attestation: I personally reviewed and interpreted this ECG as follows: < Karoline Knox MD - Last Filed: 04/19/24 10:30> ECG completion date: 04/17/24 <Karoline Knox MD - Last Filed: 04/19/24 10:30> ECG completion time: 18:35 <Karoline Knox MD - Last Filed: 04/19/24 10:30> Interpretation: Electronic ventricular pacemaker at a rate of 69 beats per minute. AR interval 189. QRS 184. QT/QTC 474/493. <Karoline Knox MD - Last Filed: 04/19/24 10:30> Discharge Plan Discharge Clinical Impression: Azotemia, Stroke or transient ischemic attack (TIA) diagnosed during current admission <Mei Flores PA-C - Last Filed: 04/17/24 18:58> Patient Disposition: Acute Care Hospital <Mei Flores PA-C - Last Filed: 04/17/24 18:58> Condition: Stable <VISHAL Terry Last Filed: 04/17/24 18:58> Patient Language: Khmer <VISHAL Terry Last Filed: 04/17/24 18:58> Prescriptions: No Action aspirin 81 mg tablet,delayed release (DR/EC) 81 mg PO DAILY carbidopa-levodopa 25-100 mg tablet 2 tablet .ROUTE QID Qty: 240 11RF Rx Instructions: 2 tabs four times daily; gabapentin 300 mg capsule 600 mg PO TID Qty: 360 5RF duloxetine 30 mg capsule,delayed release(DR/EC) 30 mg PO BID Qty: 60 6RF primidone 50 mg tablet See Rx Instructions .ROUTE .COMPLEX Qty: 240 5RF Dose Instruction: TAKE 1 TABLET TWICE DAILY Rx Instructions: 2 tablets at bedtime only atorvastatin 20 mg tablet 20 mg PO DAILY Qty: 90 2RF bupropion HCl 150 mg tablet extended release 24 hr 150 mg PO QAM Qty: 90 2RF <Mei Flores PA-C - Last Filed: 04/17/24 18:58> Follow-up/Referrals: Az Arroyo MD [Primary Care Provider] - <Mei Flores PA-C - Last Filed: 04/17/24 18:58> Quality Stroke Scale Stroke Scale 1: Stroke scale date:: 04/17/24 <VISHAL Terry Last Filed: 04/17/24 18:58> Stroke scale time:: 16:25 <VISHAL Terry Last Filed: 04/17/24 18:58> 1a Level of consciousness: alert-0 <VISHAL Terry Last Filed: 04/17/24 18:58> 1b Level of consciousness questions: answers both correctly-0 <VISHAL Terry Last Filed: 04/17/24 18:58> 1c Level of consciousness commands: obeys both correctly-0 <Mei Flores PA-C - Last Filed: 04/17/24 18:58> 2 Best gaze: normal-0 <Mei Flores PA-C - Last Filed: 04/17/24 18:58> 3 Visual: no visual loss-0 <Mei Flores PA-C - Last Filed: 04/17/24 18:58> 4 Facial palsy: normal-0 <Mei Flores PA-C - Last Filed: 04/17/24 18:58> 5a Motor: left arm: no drift-0 <Mei Flores PA-C - Last Filed: 04/17/24 18:58> 5b Motor: right arm: no drift-0 <Mei Flores PA-C - Last Filed: 04/17/24 18:58> 6a Motor: left leg: no drift-0 <Mei Flores PA-C - Last Filed: 04/17/24 18:58> 6b Motor: right leg: no drift-0 <Mei Flores PA-C - Last Filed: 04/17/24 18:58> 7 Limb ataxia: absent-0 <Mei Flores PA-C - Last Filed: 04/17/24 18:58> 8 Sensory: normal-0 <Mei Flores PA-C - Last Filed: 04/17/24 18:58> 9 Best language: no aphasia-0 <Mei Flores PA-C - Last Filed: 04/17/24 18:58> 10 Dysarthria: normal-0 <Mei Flores PA-C - Last Filed: 04/17/24 18:58> 11 Extinction and inattention: no abnormality-0 <Mei Flores PA-C - Last Filed: 04/17/24 18:58> Level:: 0 <Mei Flores PA-C - Last Filed: 04/17/24 18:58> 0 <Karoline Knox MD - Last Filed: 04/19/24 10:30>
[2024-04-17 16:49] LABS: Basophils Percent Auto 0.3 % (0.2-1.2); Eosinophils Absolute Auto 0.2 K/mm3 (0-0.3); Eosinophils Percent Auto 2.8 % (0-4.4); Hematocrit 43.4 % (42.0-52.0); Hemoglobin 13.6 g/dL (14.0-18.0); Immature Granulocyte Absolute 0.03 K/mm3 (0.00-0.031); Immature Granulocyte Percent A 0.3 % (0-0.5); Lymphocytes Absolute Auto 1.75 K/mm3 (0.9-3.2); Lymphocytes Percent Auto 20.4 % (18.3-44.2); Mean Corpuscular HGB Conc 31.3 g/dl (32-36); Mean Corpuscular Hemoglobin 29.7 pg (26-34); Mean Corpuscular Volume 94.8 fl (80-100); Monocytes Absolute Auto 0.8 K/mm3 (0.1-0.6); Monocytes Percent Auto 9.2 % (2.6-8.5); Neutrophils Absolute Auto 5.7 K/mm3 (1.3-6.7); Platelet Count Result 285 k/mm3 (150-375); Red Blood Count 4.58 M/mm3 (4.6-6.20); Red Cell Distribution Width 14.6 % (11.5-14.5); White Blood Count 8.6 K/mm3 (4.5-10.0)
[2024-04-17 17:00] LABS: Alanine Aminotransferase 13 U/L (6-50); Albumin Level 3.7 g/dL (3.5-5.1); Alkaline Phosphatase 89 U/L (38-126); Anion Gap 9 mmol/L (4-12); Aspartate Amino Transferase 24 U/L (17-59); Bilirubin,Total 0.5 mg/dL (0.2-1.3); Blood Urea Nitrogen 30 mg/dL (9-20); Calcium 8.9 mg/dL (8.4-10.2); Carbon Dioxide 27 mmol/L (22-30); Chloride 103 mmol/L (98-107); Estimated Glomerular Filt Rate 59; Glucose 102 mg/dL (65-110); Potassium 4.4 mmol/L (3.4-5.0); Sodium 139 mmol/L (137-145)
[2024-04-17 17:03] LABS: INR 0.9; Prothrombin Time 12.3 Seconds (11.1-14.7)
[2024-04-17 17:04] LABS: Partial Thromboplastin Time 28.1 Seconds (22.3-36.8)
[2024-04-17 17:12] LABS: Troponin I 0.025 ng/mL (0.000-0.034)
--- NOTE | 2024-04-17 19:00 | PC.NURSE ---
pt attempts to provide UA bedside with no success
[2024-04-17 19:27] LABS: Add Urine Microscopic? YES; Appearance Urine Clear (Clear); Bacteria Urine None Seen /hpf; Bilirubin Urine Negative (Negative); Blood Urine Trace (Negative); Color Urine Yellow (Yellow); Glucose Urine UA Negative (Negative); Ketones Urine Negative (Negative); Leukocyte Esterase Ur Negative LEU/UL (Negative); Nitrate Urine Negative (Negative); Non Pathogenic Casts 0-2; Protein Urine 2+ mg/dL (Negative); Specific Grav Ur > 1.045 (1.001-1.035); Squamous Epithelial Cell Urine None Seen /hpf (Few); Urobilinogen Urine 0.2 mg/dL (<2.0); WBC Urine 0-5 /hpf (0-3); pH Urine 5.5 (5.0-9.0)
--- OUTSIDE RECORDS SUMMARY | 2024-04-17 19:40 | XMS_ITS | Clinical Summary ---
Author Organization [facility] [address] Address [address] [place] [address] Care Team Providers Care Insurance Appraiser Name Role Phone Az Arroyo MD Primary [...] patient was located at home in the [facility]. The patient visit started at 1555 and [...] visit. Assessment & Plan (04/04/2020 4:31 PM BUTTON TACKER): - 79 y.o. man with probable Parkinson's [...] patient was located at home in the [facility]. The patient visit started at 1038 and ended at 1109. Greater than 50% of the video/phone call was spent on counseling and coordinating care. Patient was counseled on rationale for keeping doses unchanged. The patient: has been informed that the visit may not be secure and acknowledged the information. The option of participating in a telephone or video visit during the [facility] public health emergency was explained to them. [...] appreciable evidence of significant daytime drowsiness on [place] scale. No appreciable evidence of RBD on [...] your neurologist's office to (Dr. Bush in [facility]) to get results of tests for neuropathy [...] Dx; 3rd Degree AV Block. DOI 12/09/2017. [place] remote monitoring Q3 mo, office pacer checks Q1 yr. 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 Essential tremor 03/07/2016 Pre-diabetes 08/16/2011 HTN (hypertension) 07/26/2011 Depression 12/11/2007 Hyperlipidemia 12/11/2007 Encounters Date Type Department Care Team Description 03/21/2024 Orders Only [facility] Medical [facility] Cardiology [address] [place] [id number] Pop Musa MD Cardiac pacemaker in situ (Primary Dx); Complete heart block (CMS/HCC) (HCC) 03/20/2024 9:30 AM BUTTON TACKER Ancillary Procedure [facility] Cardiology [address] [place] [id number] Cardiac pacemaker in situ [Z95.0] (Primary Dx); [...] on file Legal Sex Male 2:52 AM BUTTON TACKER Gender Identity Male 12/12/2017 10:40 AM CDT Sexual Orientation Not on file 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
--- OUTSIDE RECORDS SUMMARY | 2024-04-17 19:40 | XMS_ITS | Referral Summary ---
Author Organization [facility] [address] [facility] [address] Address [address] [place] [address] Care Team Providers Care Sanitary Plumber Name Role Phone Az Arroyo MD Primary Care Provider Encounters Date Type Department Care Team Description 03/21/2024 Orders Only [facility] Cardiology [address] [place] [address] [place] [phone] Pop Musa MD Cardiac pacemaker in situ (Primary Dx); Complete heart block (CMS/HCC) (HCC) 03/20/2024 9:30 AM DOCUMENT MANAGEMENT CONSULTANT Ancillary Procedure [facility] Cardiology [address] [place] [address] [place] [phone] Cardiac pacemaker in situ [Z95.0] (Primary [...] patient was located at home in the [facility]. The patient visit started at 1555 [...] visit. Assessment & Plan (04/04/2020 4:31 PM DOCUMENT MANAGEMENT CONSULTANT): - 79 y.o. man with probable Parkinson's [...] patient was located at home in the [facility]. The patient visit started at 1038 [...] appreciable evidence of significant daytime drowsiness on Scotrun scale. No appreciable evidence of RBD on [...] your neurologist's office to (Dr. 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
--- OUTSIDE RECORDS SUMMARY | 2024-04-17 19:40 | XMS_ITS | Clinical Summary ---
Author Organization [facility] Address [address] [place] [address] Care Team Providers Care Laundry Agent Name Role Phone Az Arroyo MD Primary [...] Vascular Care - Dr. Efraín Miramontes MD, [facility], [facility] Heart and Vascular - [address] [facility] Dr. Rima Dangelo - DPM Pop Musa MD - Records Management Clerk at [facility] [address] [place] [id number] Problem Noted Date Diagnosed Date PVD (peripheral [...] Description 06/21/2024 10:30 AM CDT Office Visit [facility] Heart and Vascular - [address] [facility] [address] [address] [facility] [address] [place] [address] Efraín [place] [address] [facility] [address] [place] [address] Health Maintenance Due Date Last [...] Completed 01/06/2024 Medical Devices Implanted Type Area Research Test Engine Evaluator Device Identifier Shelf Expiration Date Model / Serial / Lot Dev Closure Angioseal 6fr Vip [id number] - [id number] Implanted:Qty : 1 on 07/23/2022 at [facility] Closure Device Right: Groin LASS[employer] 04/06/2023 [id number] / / [id number] Mesh Prolene Lg Phsl - Sna Implanted:Qty : 1 on 03/10/2012 by Colt Lopez MD Mesh Left: Groin [employer] 10/04/2016 PHSL / NA / [id number] Pacemaker-03/07 Implanted:03/2017 (Quantity not on file) Pacemaker Stent Omnlnk 8x29mm [id number] - [id number] Implanted:Qty : 1 on 09/16/2020 at [facility] Stent Left: Leg LASSITER- VASC DEVICE 07/05/2023 [id number] / / [id number] Insurance HUMANA CHOICE PPO [facility] RX HeyLets Medicare Part D RX AgreeYa Mobility - Onvelop Medicare Part B Care Teams Laundry Agent Relationship Specialty Start Date End Date Az Arroyo MD [address] [facility] [address] [place] [address] PCP - General Family Practice 07/20/16
--- OUTSIDE RECORDS SUMMARY | 2024-04-17 19:40 | XMS_ITS | Encounter Summary ---
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
--- OUTSIDE RECORDS SUMMARY | 2024-04-17 19:41 | XMS_ITS | Clinical Summary ---
Author Organization [facility] Address [address] [place] [address] Care Team Providers Care Dental Office Coordinator Name Role Phone Az Arroyo MD Primary Care Provider [phone] Allergies Active Allergy Reactions Criticality Noted Date [...] complete this topic Insurance HUMANA Care Teams Dental Office Coordinator Relationship Specialty Start Date End Date Az Arroyo MD [address] [place] [address] PCP - General FAMILY PRACTICE 05/21/22
[2024-04-17] MEDS: LABETALOL HCL INJ 100 MG/20 ML VIAL 10 MG IV PUSH (19:45)
[2024-04-17] MEDS: CLOPIDOGREL BISULFATE 300 MG TABLET PO (21:26)
[2024-04-17] MEDS: ASPIRIN 81 MG CHEWABLE TABLET 324 MG PO (21:26)
--- NOTE | 2024-04-17 22:32 | PC.NURSE ---
attempted to call report to [facility] Emergency Room at 2052 with no answer, 2057 with no answer, and again at 2226. able to give report to Narcisa, all questions answered.
--- NOTE | 2024-04-17 23:23 | PC.NURSE ---
care and report given to STACIA Forbes. all questions answered.
--- NOTE | 2024-04-18 00:13 | PC.NURSE ---
EMS arrives for patient
[2024-04-18 00:40] LABS: Glucose Point of Care 93 mg/dl (65-105)
== END 2024-04-18 00:17 | disposition short-term general hospital (02) ==
PROVIDERS: Physician Assistant; Emergency Provider Student in an Organized Health Care Education/Training Program; PCP Family Medicine
DX: R53.1 Weakness (principal); R79.89 Other specified abnormal findings of blood chemistry; N18.30 Chronic kidney disease, stage 3 unspecified; I73.9 Peripheral vascular disease, unspecified; G20.A1 Parkinson's disease without dyskinesia, without mention of fluctuations; G62.9 Polyneuropathy, unspecified; F32.5 Major depressive disorder, single episode, in full remission; Z95.0 Presence of cardiac pacemaker; Z87.891 Personal history of nicotine dependence; Z79.82 Long term (current) use of aspirin; Z79.899 Other long term (current) drug therapy; R90.82 White matter disease, unspecified; I66.01 Occlusion and stenosis of right middle cerebral artery
CPT/HCPCS: 36415; 70496; 70498; 71045; 80053; 81001; 82948; 84484; 85025; 85610; 85730; 93005; 96374; 99285; A9270; Q9967

== ENCOUNTER 2024-05-06 09:45 | Emergency (ER) | payer MEDICARE, SELFPAY ==
[2024-05-06] VITALS (10 sets, daily range): BP systolic 135–160; BP diastolic 57–60; PULSE 59–62; RESP 10–16; TEMP 35.7–35.9; O2SAT 91–97
--- NOTE | 2024-05-06 10:22 | PC.NURSE ---
Dr. Jimenez speaking with pt family on POC.Informing family of results of CT, pt probably of recovery is slim. Family ( POA at bedside) agreeable to comfort and hospice.
--- NOTE | 2024-05-06 11:10 | ED.GENADULT ---
HPI - General Adult General Chief complaint: Altered Mental Status Stated complaint: unresponsive Time Seen by Provider: 05/06/24 09:54 History of Present Illness HPI narrative: Patient is an 83-year-old male who presents ER unresponsive. History of recent ischemic stroke. Was able discharge home with minimal left-sided deficit. He is on Plavix. EMS or assistant bagging. Patient is a DNR. No response to pain. Has an oral airway in place. Last known well was last night when he went to bed. Related Data Home Medications ?Medication ?Instructions ?Recorded ?Confirmed ?Last Taken ?Type aspirin 81 mg tablet,delayed 81 mg PO DAILY 10/08/21 05/03/24 Unknown History release Allergies Allergy/AdvReac Type Severity Reaction Status Date / Time nabumetone Allergy Unknown unk Verified 05/03/24 09:57 Review of Systems Review of Systems: ROS unobtainable: Yes unobtainable due to medical condition [facility] Past Medical History Medical History (Updated 05/06/24 @ 11:10 by Jv Jimenez MD) Hypertensive CKD (chronic kidney disease) Complete heart block Hemiplegia affecting left dominant side History of stroke with current residual effects Parkinsons disease Peripheral neuropathy Daytime hypersomnolence Polyneuropathy Depression IFG (impaired fasting glucose) Major depression in remission CKD (chronic kidney disease), stage III PAD (peripheral artery disease) Surgical History Surgical History S/P arterial stent LLE, RLE Family History Family History Mother Family history of heart disease in male family member before age 55 Family history of coronary artery disease Sibling Patient's brother is in good health Carcinoma of colon Father Malignant neoplasm of prostate Other Cerebrovascular accident Hypertension Social History Social History (Updated 05/03/24 @ 10:04 by Zaina Duarte) Social History: Smoking status: Former smoker Tobacco type: cigarettes Second hand tobacco smoke exposure: No Smoking end date: 03/07/74 Alcohol intake: never Substance use: never Substance use type: does not use Lack of Transportation: No Lack of Food: Never True Current Housing: I Have Housing Concerned About Future Housing: No Difficulty Paying Gas/Electric Bills: No Difficulty Paying for Meds: No Currently Unemployed: No Education: High School Diploma/GED Difficulty w/ Childcare or Family Care: No Living arrangements: with family Occupation/Education: retired Gender identity (if verbalized by the patient): Male Sexual Orientation (if Verbalized by the Patient): Straight or Heterosexual Exam Narrative: GENERAL: Ill-appearing, eyes close lightly breathing, no actua distress noted. HEAD: Normocephalic, atraumatic. EYES: Pupils at 8 mm and minimally reactive to light normal. No nystagmus. ENT: Mucous membranes moist. CHEST: Clear to auscultation. No respiratory distress. HEART: Regular rate and rhythm. Normal peripheral pulses. ABDOMEN: Soft, nontender, nondistended. EXTREMITIES: Normal range of motion. No edema. SKIN: Warm, dry, no rash. NEURO: GCS 3 to sternal rub. PSYCH: Normal mood and affect. Course Course Emergency Course: Family at the bedside I have discussed the CT findings. Patient is a DNR and they would now like to make him a hospice patient. TIB[facility]CIO has been out to evaluate the patient. Patient will be admitted to general inpatient services for hospice care. Vital Signs Vital signs: Vital Signs Temperature 96.2 F L 05/06/24 09:46 Pulse Rate 62 05/06/24 09:46 Respiratory Rate 10 L 05/06/24 09:46 Blood Pressure 160/57 H 05/06/24 09:46 Pulse Oximetry 97 05/06/24 09:46 Oxygen Delivery Room Air 05/06/24 09:46 Temperature 96.6 F L 05/06/24 12:22 Pulse Rate 60 05/06/24 12:47 Respiratory Rate 14 05/06/24 12:47 Blood Pressure 145/58 H 05/06/24 12:22 Pulse Oximetry 91 05/06/24 12:22 Oxygen Delivery Room Air 05/06/24 10:36 Medical Decision Making Vital Signs Vital Signs: Vital Signs Temperature 96.2 F L 05/06/24 09:46 Pulse Rate 62 05/06/24 09:46 Respiratory Rate 10 L 05/06/24 09:46 Blood Pressure 160/57 H 05/06/24 09:46 Pulse Oximetry 97 05/06/24 09:46 Oxygen Delivery Room Air 05/06/24 09:46 Temperature 96.6 F L 05/06/24 12:22 Pulse Rate 60 05/06/24 12:47 Respiratory Rate 14 05/06/24 12:47 Blood Pressure 145/58 H 05/06/24 12:22 Pulse Oximetry 91 05/06/24 12:22 Oxygen Delivery Room Air 05/06/24 10:36 Imaging Data Radiologist's impression: ITS Impressions Head CT 05/06/24 10:24 Impression: Extremely large acute parenchymal hemorrhage centered in the right frontal lobe measuring 9.5 x 6.3 x 5.8 cm. Mass effect results in leftward midline shift of up to 1.7 cm. Additional acute parenchymal hemorrhage in the medial left frontal lobe. Diffuse acute intraventricular hemorrhage. Probable small acute subdural hemorrhage of the anterior right frontal lobe. Prominent dilatation of the left lateral ventricle, with mild dilatation of the chest with the right lateral ventricle. This may be related to the significant midline shift present, as well as possible element of reactive developing hydrocephalus. Case discussed with Dr. Jimenez in the emergency room at the time of this reading. Chest X-Ray 05/06/24 10:29 Impression: Possible minimal left pleural effusion. Critical Care Time Critical Care Time Critical Care Time: Yes Total Critical Care Time: 35 Discharge Plan Discharge Clinical Impression: Intraparenchymal hemorrhage of brain Patient Disposition: Hospice [facility] Inpatient Condition: Critical Patient Language: Chinese Prescriptions: No Action aspirin 81 mg tablet,delayed release (DR/EC) 81 mg PO DAILY carbidopa-levodopa 25-100 mg tablet 2 tablet .ROUTE QID Qty: 240 11RF Rx Instructions: 2 tabs four times daily; gabapentin 300 mg capsule 600 mg PO TID Qty: 360 5RF duloxetine 30 mg capsule,delayed release(DR/EC) 30 mg PO BID Qty: 60 6RF primidone 50 mg tablet See Rx Instructions .ROUTE .COMPLEX Qty: 240 5RF Dose Instruction: TAKE 1 TABLET TWICE DAILY Rx Instructions: 2 tablets at bedtime only atorvastatin 40 mg tablet 40 mg PO DAILY Qty: 30 2RF clopidogrel [Plavix] 75 mg tablet 75 mg PO DAILY Qty: 30 0RF levothyroxine [Levoxyl] 25 mcg tablet 25 mcg PO DAILY Qty: 30 0RF bupropion HCl 150 mg tablet extended release 24 hr 150 mg PO QAM Qty: 90 2RF Follow-up/Referrals: Az Arroyo MD [Primary Care Provider] -
--- NOTE | 2024-05-06 11:35 | PC.NURSE ---
Pt repositioned, warm blankets applied. Skin tear to left elbow noted, cleansed & tegaderm applied. Family at bedside.
[2024-05-06] MEDS: MORPHINE SULFATE (*CRX) 4 MG/ML INJ IV PUSH (12:16)
[2024-05-06] MEDS: levETIRAcetam 1000MG/NACL100ML 1,000 MG/100 ML BAG 400 MG IVPB (12:17)
[2024-05-06] MEDS: MORPHINE 50 MG/NS 100ML (*CRX) 50 MG/100 ML BAG IV CONT (12:47)
--- NOTE | 2024-05-06 13:23 | PM.IMHP ---
H&P: HPI History of Present Illness Date/Time: 05/06/24 13:23 Chief Complaint: Uncontrolled discomfort and restlessness Narrative: This unfortunate 83 year gentleman with severe vascular disease presented as Hospital April 17 with hemiplegia. CTA of the head and neck showed a calcified embolus in the right M2 circulation. He was transferred to [facility] for further treatment. He was treated conservatively. Aspirin and Plavix. He was discharged to home. He was doing fairly well until this morning when his found him ?foaming at the mouth? and unresponsive in bed. He was brought [facility] were CT of the brain revealed 2 large frontal lobe bleeds worse on the right at 9.5 cm. Nursing staff reports agitation with touch prior to administration of analgesics. Review of Systems Review of Systems: ROS unobtainable: Yes unobtainable due to medical condition [facility] Past Medical History Medical History Hypertensive CKD (chronic kidney disease) Complete heart block Hemiplegia affecting left dominant side History of stroke with current residual effects Parkinsons disease Peripheral neuropathy Daytime hypersomnolence Polyneuropathy Depression IFG (impaired fasting glucose) Major depression in remission CKD (chronic kidney disease), stage III PAD (peripheral artery disease) Surgical History Surgical History S/P arterial stent LLE, RLE Family History Family History Mother Family history of heart disease in male family member before age 55 Family history of coronary artery disease Sibling Patient's brother is in good health Carcinoma of colon Father Malignant neoplasm of prostate Other Cerebrovascular accident Hypertension Social History Social History (Updated 05/06/24 @ 13:28 by Anil Masters MD) Social History: . Code Status: DNR Smoking status: Former smoker Tobacco type: cigarettes Second hand tobacco smoke exposure: No Smoking end date: 03/07/74 Alcohol intake: never Substance use: never Substance use type: does not use Lack of Transportation: No Lack of Food: Never True Current Housing: I Have Housing Concerned About Future Housing: No Difficulty Paying Gas/Electric Bills: No Difficulty Paying for Meds: No Currently Unemployed: No Education: High School Diploma/GED Difficulty w/ Childcare or Family Care: No Living arrangements: with family Occupation/Education: retired Gender identity (if verbalized by the patient): Male Sexual Orientation (if Verbalized by the Patient): Straight or Heterosexual Meds Home Medications and Allergies Home Medications ?Medication ?Instructions ?Recorded ?Confirmed ?Type aspirin 81 mg tablet,delayed 81 mg PO DAILY 10/08/21 05/03/24 History release bupropion HCl 150 mg 24 hr tablet, 150 mg PO QAM #90 tabs 01/14/24 05/03/24 Rx extended release carbidopa 25 mg-levodopa 100 mg 2 tablet .Route QID #240 tabs 01/30/24 05/03/24 Rx tablet duloxetine 30 mg capsule,delayed 30 mg PO BID #60 caps 01/30/24 05/03/24 Rx release gabapentin 300 mg capsule 600 mg (2 x 300 mg) PO TID #360 01/30/24 05/03/24 Rx caps primidone 50 mg tablet See Rx Instructions .Route 01/30/24 05/03/24 Rx .COMPLEX #240 tabs atorvastatin 40 mg tablet 40 mg PO DAILY #30 tabs 05/03/24 05/03/24 Rx clopidogrel 75 mg tablet (Plavix) 75 mg PO DAILY #30 tabs 05/03/24 05/03/24 Rx levothyroxine 25 mcg tablet 25 mcg PO DAILY #30 tabs 05/03/24 05/03/24 Rx (Levoxyl) Allergies Allergy/AdvReac Type Severity Reaction Status Date / Time nabumetone Allergy Unknown unk Verified 05/03/24 09:57 Vital Signs Vital Signs - 24 hr 05/06/24 09:46 05/06/24 10:00 05/06/24 10:36 Temperature 96.2 F L 96.7 F L Pulse Rate 62 60 Respiratory Rate 10 L 14 Blood Pressure 160/57 H 145/57 H Pulse Oximetry 97 93 93 Oxygen Delivery Room Air Room Air 05/06/24 11:00 05/06/24 11:15 05/06/24 11:30 Temperature Pulse Rate 59 L 62 60 Respiratory Rate 14 14 16 Blood Pressure 143/60 H 137/59 L 138/58 L Pulse Oximetry 92 92 93 Oxygen Delivery 05/06/24 12:22 05/06/24 12:47 Temperature 96.6 F L Pulse Rate 60 60 Respiratory Rate 14 14 Blood Pressure 145/58 H Pulse Oximetry 91 Oxygen Delivery Exam Narrative: Elderly gentleman lying in hospital bed with intermittent twitching of right foot. Unresponsive to verbal or tactile stimuli. Oral mucosa dry. Neck no JVD. Heart normal S1-S2 regular rate no audible murmur. Abdomen bowel sounds hypoactive soft. Extremities no edema. Musculoskeletal no gross deformity visual inspection. Neurologic cranial nerves appear symmetric to visual inspection. Intermittent myoclonic jerks of right foot. Assessment and Plan Assessment and plan (1) Hospice care: Code(s): Z51.5 - Encounter for palliative care Status: Acute Assessment and Plan: Meet inpatient hospice criteria due to required continuous IV morphine for analgesia and scheduled IV Keppra for seizure prevention. 05/06/2024 discussed care prognosis with family at bedside. (2) Intraparenchymal hemorrhage of brain: Code(s): I61.9 - Nontraumatic intracerebral hemorrhage, unspecified Status: Acute (3) History of stroke with current residual effects: Code(s): I69.30 - Unspecified sequelae of cerebral infarction Status: Acute (4) Parkinsons disease: Code(s): G20 - Parkinson's disease Status: Acute (5) Hemiplegia affecting left dominant side: Code(s): G81.92 - Hemiplegia, unspecified affecting left dominant side Status: Acute (6) Peripheral neuropathy: Code(s): G62.9 - Polyneuropathy, unspecified Status: Acute (7) Status post cardiac pacemaker procedure: Code(s): Z95.0 - Presence of cardiac pacemaker Status: Acute (8) PAD (peripheral artery disease): Code(s): I73.9 - Peripheral vascular disease, unspecified Status: Acute
--- NOTE | 2024-05-06 13:26 | PC.NURSE ---
Pt remains unresponsive, skin tear to left elbow cleansed telfa dressing applied secured with coban. Morphine drip infusing pt resting. Family at bedside.
== END 2024-05-06 13:37 | disposition hospice, inpatient (51) ==
PROVIDERS: Emergency Provider Emergency Medicine; PCP Family Medicine
DX: I61.9 Nontraumatic intracerebral hemorrhage, unspecified (principal); Z51.5 Encounter for palliative care; I12.9 Hypertensive chronic kidney disease with stage 1 through stage 4 chronic kidney disease, or unspecified chronic kidney disease; N18.30 Chronic kidney disease, stage 3 unspecified; I69.354 Hemiplegia and hemiparesis following cerebral infarction affecting left non-dominant side; I73.9 Peripheral vascular disease, unspecified; G62.9 Polyneuropathy, unspecified; G20.A1 Parkinson's disease without dyskinesia, without mention of fluctuations; Z66 Do not resuscitate; Z95.5 Presence of coronary angioplasty implant and graft; Z95.0 Presence of cardiac pacemaker; Z87.891 Personal history of nicotine dependence; Z79.02 Long term (current) use of antithrombotics/antiplatelets; Z79.82 Long term (current) use of aspirin; Z79.899 Other long term (current) drug therapy
CPT/HCPCS: 70450; 71045; 93005; 96374; 96375; 99285; A9270; J1953; J2270

== ENCOUNTER 2024-05-06 14:13 | HOS | payer OTHER, MEDICARE, SELFPAY ==
[2024-05-06] MEDS: ATROPINE SULFATE 1% OPHTH SOLN 5 ML BOTTLE 1 DROP SUBLINGUAL (14:24)
[2024-05-06] MEDS: GLYCOPYRROLATE INJ (*SP) 0.2 MG/ML VIAL 0.1 MG IV PUSH (14:44)
[2024-05-06] MEDS: MORPHINE SULFATE (*CRX) 2 MG/ML INJ IV PUSH (15:44)
[2024-05-06] MEDS: LORazepam INJ (*CRX) 2 MG/ML VIAL 1 MG IV PUSH (15:46)
--- NOTE | 2024-05-07 16:37 | PM.DDS ---
Discharge Summary Date and Time Date of : 05/06/24 Time of : 16:40 Provider Pronounced By: 2 RNs Name of First RN That Pronounced: Virginia Fisher Name of Second RN That Pronounced: Sujey Crespo Probable Cause of Probable Cause of : intraparenchymal cerebral hemorrhage as a complication of completed embolic stroke. Summary Hospital Course: Admitted to inpatient hospice service for symptom management. Comfort medications were initiated. Mr. Herrera peacefully. Additional Data Confirmation of as documented by pronouncing clinician: Pupillary Reflex, Palpable Pulses, Response to Stimuli, Heart Tones and Breath Sounds Name of Provider Notified: Dr. Masters Time Provider Notified: 17:12 Provider Requests Autopsy: No Family Requests Autopsy: No Supervisor Pastry Notified: Yes Date [facility] Notified of : 05/06/24 Time [facility] Notified of : 17:36
== END 2024-05-06 18:56 | disposition expired | DRG 951 ==
PROVIDERS: Admitting Provider Internal Medicine; PCP Family Medicine; Visit Provider Internal Medicine
DX: Z51.5 Encounter for palliative care (principal); I61.9 Nontraumatic intracerebral hemorrhage, unspecified; I69.354 Hemiplegia and hemiparesis following cerebral infarction affecting left non-dominant side; I12.9 Hypertensive chronic kidney disease with stage 1 through stage 4 chronic kidney disease, or unspecified chronic kidney disease; N18.30 Chronic kidney disease, stage 3 unspecified; G20.A1 Parkinson's disease without dyskinesia, without mention of fluctuations; I73.9 Peripheral vascular disease, unspecified; G62.9 Polyneuropathy, unspecified; R29.702 NIHSS score 2; Z66 Do not resuscitate; Z95.0 Presence of cardiac pacemaker
CPT/HCPCS: A9270; J1596; J2060; J2270